=== PATIENT | female | born 1955 | race African-American/Black ===

== ENCOUNTER 2021-04-20 13:07 | Emergency (ER) | payer MEDICARE, MEDICAID, SELFPAY ==
[2021-04-20 13:18] VITALS: BP 133/76; PULSE 62; RESP 16; TEMP 36.1; O2SAT 99
--- NOTE | 2021-04-20 14:35 | ED.URI ---
HPI - URI/Sore Throat General Chief Complaint: Upper Respiratory Infection Stated Complaint: congestion Source: patient and RN notes reviewed Limitations: no limitations History of Present Illness HPI Narrative: The vaccinated patient, a lifelong non-smoker/nondrinker, presents with a shorter 1 to 2-day history of cough, slight hoarseness associated with definite new wheezing. No fever, sputum changes, earache, sore throat; no loss of taste/smell, CP, precordial chest pain, vomiting/diarrhea, S OB. Symptoms are mild, and worse supine/at night Related Data Home Medications Medication Instructions Recorded Confirmed aspirin 81 mg PO DAILY 04/20/21 04/20/21 diclofenac sodium TOPICAL 04/20/21 ferrous sulfate 325 mg PO DAILY 04/20/21 04/20/21 losartan 04/20/21 naproxen 04/20/21 pravastatin 04/20/21 sitagliptin [Januvia] mg 04/20/21 Allergies Allergy/AdvReac Type Severity Reaction Status Date / Time CODIENE AdvReac Intermediate DIARRHEA Uncoded 08/27/15 07:38 Review of Systems Review of Systems: General/Constitutional: No weight loss,fever Eyes: N0: Redness,discharge Ears/Nose/Throat: No: Epistaxis,ear discharge Respiratory: Denies: Hemoptysis Gastrointestinal: No Vomiting, Bleeding-rectal Skin: No Lumps, eruption Neurologic: No Focal Weakness,Sz Hematologic: Denies: Petechiae/Purpura Psychiatric: No: Suicida ideationl All Other Systems: Reviewed and Negative PMFSH Comments At time of signature, agree with nursing past medical, surgical, social and family history. There is no relevant family history pertinent to the presenting complaint Exam Narrative: General Appearance: Well appearing, Well nourished/obese, Conjunctiva clear Ears: Auditory canal normal, TM normal Nose: Rhinorrhea, Mucousal erythema Mouth/Throat: MM moist, Uvula midline, Pharyngeal erythema Neck: Supple, No adenopathy Respiratory: No respiratory distress, Breath sounds equal, decreased at bases, scattered wheezing Cardiovascular: RRR, No JVD Musculoskeletal: Non tender, Normal strength Skin: Warm, Dry Neurological: A&O x3, CN II-XII intact Psychiatric: Normal mood, Normal affect Course Vital Signs Vital signs: Vital Signs Temperature 97.0 F L 04/20/21 13:18 Pulse Rate 62 04/20/21 13:18 Respiratory Rate 16 04/20/21 13:18 Blood Pressure 133/76 04/20/21 13:18 Pulse Oximetry 99 04/20/21 13:18 Temperature 97.0 F L 04/20/21 13:18 Pulse Rate 62 04/20/21 13:18 Respiratory Rate 16 04/20/21 13:18 Blood Pressure 133/76 04/20/21 13:18 Pulse Oximetry 99 04/20/21 13:18 Discharge Plan Discharge Clinical Impression: Wheezing-associated respiratory infection (WARI), Cough Patient Disposition: Home, Self-Care Condition: Stable Instructions: Reactive Airways Disease (ED) Prescriptions: New azithromycin 250 mg tablet See Rx Instructions .ROUTE .COMPLEX Qty: 6 RF: 0 prednisone 20 mg tablet 60 mg PO DAILY Qty: 15 RF: 0 albuterol sulfate [Ventolin HFA] 90 mcg/actuation HFA aerosol inhaler 2 puff INHALATION QID PRN (Reason: shortness of breath or wheezing) Qty: 8.5 RF: 1 benzonatate [Tessalon Perles] 100 mg capsule 100 mg PO TID Qty: 20 RF: 1 No Action losartan 50 mg tablet RF: 0 pravastatin 40 mg tablet RF: 0 ferrous sulfate 325 mg (65 mg iron) Tablet 325 mg PO DAILY RF: 0 aspirin 81 mg Tablet 81 mg PO DAILY RF: 0 naproxen 500 mg tablet RF: 0 Januvia 100 mg tablet RF: 0 diclofenac sodium 1 % gel TOPICAL RF: 0 Other Ambulatory Orders: SARS-CoV-2 RNA, Qual RT-PCR (Routine) Location: Determined by Patient Ordered By: Los Beal Follow-up/Referrals: Brandon,KENIA Stewart [Primary Care Provider] -
[2021-04-20] MEDS: predniSONE 20 MG TABLET 60 MG PO (14:48)
== END 2021-04-20 14:55 | disposition home or self-care (01) ==
PROVIDERS: Emergency Provider Emergency Medicine; PCP Physician Assistant
DX: J98.8 Other specified respiratory disorders (principal); R06.2 Wheezing; Z79.82 Long term (current) use of aspirin; Z79.1 Long term (current) use of non-steroidal anti-inflammatories (NSAID); Z20.822 Contact with and (suspected) exposure to COVID-19
CPT/HCPCS: 87426; 99213; C9803; G0463; J7512

== ENCOUNTER 2021-09-21 11:41 | Emergency (ER) | payer MEDICARE, MEDICAID, SELFPAY ==
--- NOTE | ~2021-09-21 | XR_ITS ---
EXAMINATION: XR foot RT min 3V EXAM DATE: 09/21/2021 12:29 INDICATION: Diffuse rt foot pain x 3 days etiology unknown. TECHNIQUE: Right foot dorsoplantar, lateral and oblique projections obtained and reviewed. There is no prior study for comparison. FINDINGS: Right metatarsal bones unremarkable. There is mild right 1st metatarsophalangeal and inter phalangeal primary osteoarthritis. There are no acute fractures or dislocations identified. There is no subcutaneous gas. The soft tissue is unremarkable. There are no radiopaque foreign bodies. Th ere are no bony erosions identified. There is an old 5th proximal phalangeal fracture. IMPRESSION: Mild 1st MTP, IP osteoarthritis. Reviewed, dictated and finalized at location A. MODEL
[2021-09-21 11:59] VITALS: BP 117/66; PULSE 65; RESP 16; TEMP 36.2; O2SAT 98
--- NOTE | 2021-09-21 12:16 | ED.LOWEXIN ---
HPI - Extremity Injury (Lower) General Chief Complaint: Extremity Injury, Lower Stated Complaint: RIGHT ANKLE PAIN Time Seen by Provider: 09/21/21 11:50 Source: patient, RN notes reviewed and old records reviewed Mode of arrival: ambulatory Limitations: no limitations History of Present Illness HPI Narrative: [facility] foot pain. Started 4 days ago after walking on ice. Denies falling or tripping or twisting foot. Unable to put full weight on foot. Has been walking on heel and outer right foot. Reports sharp pain. Pain continues after patient has been walking. Has been taking Tylenol extra strength 2 tabs daily. Has been applying ice and elevating right foot when sitting. Denies increased swelling to right foot or ankle. Denies fever muscle aches chills. Reports typically swims and walks for regular activity. Some parts of this dictation were generated by voice recognition software and may contain typographical and/or grammatical inaccuracies. Related Data Home Medications Medication Instructions Recorded Confirmed aspirin 81 mg PO DAILY 04/20/21 09/21/21 ferrous sulfate 325 mg PO DAILY 04/20/21 09/21/21 losartan 50 mg PO DAILY 04/20/21 naproxen 500 mg PO DAILY 04/20/21 pravastatin 40 mg PO DAILY 04/20/21 sitagliptin [Januvia] 100 mg PO DAILY 04/20/21 Allergies Allergy/AdvReac Type Severity Reaction Status Date / Time CODIENE AdvReac Intermediate DIARRHEA Uncoded 09/21/21 12:19 Review of Systems Review of Systems: CONSTITUTIONAL: Denies fever, chills, or sweats. EYES: Denies visual changes, redness, or discharge. ENT: Denies rhinorrhea, congestion, sore throat, or otalgia. CARDIOVASCULAR: Denies chest pain, palpitations, or edema. RESPIRATORY: Denies cough or dyspnea. GASTROINTESTINAL: Denies abdominal pain, nausea, vomiting, or diarrhea. GENITOURINARY: Denies dysuria or hematuria. SKIN: Denies rash or itching. MUSCULOSKELETAL: Denies back pain, joint pain, or myalgia. Reports right bottom of foot and outer foot pain. Pain in right heel hurts with walking. Unable to bear full weight on right foot. NEUROLOGIC: Denies headache, numbness, or weakness. All other systems reviewed are negative, except as documented in HPI. All systems reviewed & are unremarkable except as noted in HPI and below Constitutional: Comments: Denies fatigue muscle aches or chills. PMFSH Comments At the time of my signature, I reviewed and agree with the nursing past medical, surgical, social, and family history. There is no relevant family history pertinent to the patient complaint. Exam Narrative: GENERAL: This is a well-nourished, well-developed above average BMI female in no apparent distress. HEAD: normocephalic, atraumatic. EYES: Sclera clear/white. Vision is grossly intact. EARS: External ears normal, auditory canals clear and without drainage, Hearing grossly intact. NOSE: External nose normal with no obvious nasal discharge, nares without redness, no rhinorrhea. THROAT: Mucous membranes moist, NECK: Neck supple, full range of motion. CARDIOVASCULAR: Regular rate and rhythm without murmurs, gallops, or rubs. RESPIRATORY: Clear to auscultation anterior and posterior. Breath sounds equal bilaterally. No wheezes, rales, or rhonchi. GASTROINTESTINAL: Abdomen soft, non-tender, nondistended. Bowel sounds are active. SKIN: warm, Dry, intact with no suspicious lesions or rash, good texture and turgor. NEURO: awake, alert, and oriented to person, place and time. There were no obvious focal neurologic abnormalities. Cranial nerves grossly intact. EXTREMITIES: No calf tenderness. Right foot and ankle nonpitting edema. Right midline pedal tenderness with palpation. Right heel tender with palpation. Right distal power press tender with palpation. Course Course Level of Care: Express Care Visit Vital Signs Vital signs: Vital Signs Temperature 36.2 C L 09/21/21 11:59 Pulse Rate 65 09/21/21 11:
== END 2021-09-21 12:55 | disposition home or self-care (01) ==
PROVIDERS: Emergency Provider Nurse Practitioner Family
DX: M19.071 Primary osteoarthritis, right ankle and foot (principal); E78.00 Pure hypercholesterolemia, unspecified; I10 Essential (primary) hypertension
CPT/HCPCS: 73630; 99213; G0463

== ENCOUNTER 2022-07-08 00:38 | Day surgery (SDC) | payer MEDICARE, MEDICAID, SELFPAY ==
[2022-07-05 11:17] VITALS: BMI 37.7
[2022-07-08 10:10] VITALS: BP 122/76; PULSE 63; RESP 18; TEMP 36.1; O2SAT 98; BMI 34.6
[2022-07-08] MEDS: LACTATED RINGERS 1,000 ML 150 ML IV CONT (10:25)
--- NOTE | 2022-07-08 10:25 | P.PNAN_ITS ---
Anes - Initial Pre Proc Eval Procedure: Operation Date: 07/08/22 11:00 Proposed Procedures p Screening Colonoscopy - Zen Martinez MD Date/Time: 07/08/22 10:25 Surgeon: Zen Martinez MD Pre Op Diagnosis: Hx of colon polyps Patient Data Age: 67 Gender: F Height: 1.73 m Weight: 103.2 kg Last Vital Signs Temp 97 F L 07/08/22 10:10 Pulse 63 07/08/22 10:10 Resp 18 07/08/22 10:10 BP 122/76 07/08/22 10:10 Pulse Ox 98 07/08/22 10:10 O2 Del Method Room Air 07/08/22 10:10 Allergies Allergy/AdvReac Type Severity Reaction Status Date / Time CODIENE AdvReac Intermediate Hallucinati Uncoded 07/05/22 11:17 ng Home Medications Medication Instructions Recorded Confirmed Type aspirin 81 mg tablet 81 mg PO DAILY 04/20/21 07/05/22 History ferrous sulfate 325 mg (65 mg 325 mg PO DAILY 04/20/21 07/05/22 History iron) tablet losartan 50 mg tablet 50 mg PO DAILY 04/20/21 07/05/22 History pravastatin 40 mg tablet 40 mg PO DAILY 04/20/21 07/05/22 History sitagliptin phosphate 100 mg 100 mg PO DAILY 04/20/21 07/05/22 History tablet (Januvia) sodium,potassium,mag sulfates 17.5 See Rx Instructions PO .COMPLEX 05/24/22 07/05/22 Rx gram-3.13 gram-1.6 gram oral soln #354 mL (Suprep Bowel Prep Kit) Patient hx anesthesia problems: none Family hx anesthesia problems: none Results Review: All pre-operative results and documents have been reviewed as part of the pre- operative evaluation. [facility] Social History Social History Smoking status: Never smoker Alcohol intake: current Substance use: never Substance use type: does not use Living arrangements: with family Spiritual care concerns: No Anes - Eval Final PreProcedure Day of Procedure 07/08/22 10:25 Patient weight: obese Heart: regular rate and rhythm Lungs: clear to auscultation Airway: Mallampati scale class II Neurological: alert and oriented Last oral intake: >/= 8 hours ASA classification: III Emergent: no Anesthetic plan: proceed Anesthesia type and monitoring: general GIVS and standard monitoring Results Review: All pre-operative results and documents have been reviewed as part of the pre- operative evaluation. Informed Consent: The patient's anesthetic plan and its attendant risks and benefits were discussed with the patient/family/POA. Questions were solicited and answers provided to the satisfaction of the patient/family/POA.
[2022-07-08 10:38] LABS: Glucose Point of Care 98 mg/dl (65-105)
--- NOTE | 2022-07-08 10:43 | P.HP_ITS ---
History of Present Illness History of Present Illness Consent: Risks, benefits, and alternatives have been discussed and questions answered. Patient agrees to proceed with procedure. Chief complaint: Hx of colon polyps Narrative: Karine Taylor is a 67 year old female Presents for screening colonoscopy. Patient is reported to have a adenomatous colon polyp removed and colon by Dr. Moura in 2016. Patient reports that her current weight appetite and bowel movements are normal. Patient denies abdominal pain. She has had no bleeding. Family history noncontributory. Review of Systems Review of Systems: Review of systems noncontributory. COUNTS INCLUDE 234 BEDS AT THE [facility] Social History Social History Smoking status: Never smoker Alcohol intake: current Substance use: never Substance use type: does not use Living arrangements: with family Spiritual care concerns: No Meds Home Medications and Allergies Home Medications Medication Instructions Recorded Confirmed Type aspirin 81 mg tablet 81 mg PO DAILY 04/20/21 07/05/22 History ferrous sulfate 325 mg (65 mg 325 mg PO DAILY 04/20/21 07/05/22 History iron) tablet losartan 50 mg tablet 50 mg PO DAILY 04/20/21 07/05/22 History pravastatin 40 mg tablet 40 mg PO DAILY 04/20/21 07/05/22 History sitagliptin phosphate 100 mg 100 mg PO DAILY 04/20/21 07/05/22 History tablet (Januvia) sodium,potassium,mag sulfates 17.5 See Rx Instructions PO .COMPLEX 05/24/22 07/05/22 Rx gram-3.13 gram-1.6 gram oral soln #354 mL (Suprep Bowel Prep Kit) Allergies Allergy/AdvReac Type Severity Reaction Status Date / Time CODIENE AdvReac Intermediate Hallucinati Uncoded 07/05/22 11:17 ng Vital Signs Vital Signs - 24 hr 07/08/22 10:10 Temperature 97 F L Pulse Rate 63 Respiratory Rate 18 Blood Pressure 122/76 Pulse Oximetry 98 Oxygen Delivery Room Air Exam Narrative: Physical exam reveals patient to be alert. Vital signs stable. HEENT exam is unremarkable. Patient is anicteric. Lungs are clear to auscultation and percussion. Heart is without murmur or extra sounds. Abdominal exam bowel sounds are present soft nontender with no organomegaly. Digital external rectal exam is normal. Assessment and Plan Assessment and plan (1) History of colon polyps: Code(s): Z86.010 - Personal history of colonic polyps Status: Acute Assessment and Plan: Patient has a history of adenomatous colon polyp removed from the colon 6 years ago. Plan for surveillance colonoscopy at this time. Follow-up every 5 years is advised.
[2022-07-08 11:15] VITALS: BP 124/58; PULSE 58; RESP 22; O2SAT 100
[2022-07-08 11:25] VITALS: BP 129/63; PULSE 57; RESP 20; O2SAT 98
[2022-07-08 11:35] VITALS: BP 135/69; PULSE 58; RESP 20; O2SAT 100
[2022-07-08 12:09] LABS: Hematocrit 42.1 % (37.0-47.0); Hemoglobin 12.9 g/dL (12.0-15.0); Mean Corpuscular HGB Conc 30.6 g/dl (32-36); Mean Corpuscular Hemoglobin 28.4 pg (26-34); Mean Corpuscular Volume 92.5 fl (80-100); Mean Platelet Volume 10.1 fl (7.4-10.4); Platelet Count Result 189 k/mm3 (150-375); Red Blood Count 4.55 M/mm3 (4.2-5.4); Red Cell Distribution Width 13.2 % (11.5-14.5)
--- NOTE | 2022-07-08 12:10 | SUR.PHASEII ---
1135: MULTIPLE ATTEMPTS TO DRAW BLOOD WORK ORDERED. LAB CALLED TO DRAW BLOOD WORK. LAB OBTAINED CBC ORDERED. PT TOLERATED WELL.
== END 2022-07-08 12:20 | disposition home or self-care (01) ==
PROVIDERS: Visit Provider Internal Medicine Gastroenterology
PROC: 0DJD8ZZ Inspection of Lower Intestinal Tract, Via Natural or Artificial Opening Endoscopic (ICD-10-PCS; CPT 45378; principal; 2022-07-08 11:00)
DX: Z12.11 Encounter for screening for malignant neoplasm of colon (principal); Z86.010 Personal history of colon polyps; K57.30 Diverticulosis of large intestine without perforation or abscess without bleeding
CPT/HCPCS: G0105; 36415; 82948; 85027; J2704; J7120

== ENCOUNTER 2022-10-05 15:04 | Outpatient (CLI) | payer MEDICARE, MEDICAID, SELFPAY ==
--- NOTE | ~2022-10-05 | XR_ITS ---
EXAMINATION: XR lumbar spine 6V w bending DATE: 10/05/2022 15:35 INDICATION: Low back pain. TECHNIQUE: 6 views of the lumbar spine including flexion and extension views were obtained. COMPARISON: Radiographs 03/25/2013 FINDINGS: There is levoscoliosis of lumbar spine. There is 3 mm anterolisthesis of L3 on L4 and L4 on L5. The spine is hypomobile with flexion and extension. Vertebral body heights are normal. There is mildly decreased disc height at L3-L4 and moderately decreased disc height at L4-L5 and severely decr eased disc height at L5-S1. There is multilevel severe facet joint osteoarthritis bilaterally. There are surgical clips in the right abdomen. There is advanced left hip osteoarthritis. IMPRESSION: 1. Severe lumbar spondylosis. 2. Lumbar levoscoliosis. Reviewed, dictated and finalized at location A. O CONVEYOR OPERATOR
== END 2022-10-05 15:05 | disposition home or self-care (01) ==
PROVIDERS: PCP Physician Assistant; Visit Provider Physician Assistant
DX: M47.896 Other spondylosis, lumbar region (principal)
CPT/HCPCS: 72114

== ENCOUNTER 2022-10-21 13:42 | Outpatient (CLI) | payer MEDICARE, MEDICAID, SELFPAY ==
--- NOTE | ~2022-10-21 | MR_ITS ---
MRI of the lumbar spine Clinical History: Degenerative disc disease Technique: Axial T2-weighted images, and sagittal T1-weighted, T2-weighted, and T2 fat-sat images wer e acquired. Findings: There is no fracture in the lumbar spine. Minimal grade 1 anterolisthesis of L3 over L4 not ed. No suspicious bone marrow signal abnormality seen. At L1-L2, there is minimal disc bulge. There is moderate to advanced facet arthropathy. No spinal can al stenosis. There is moderate to advanced bilateral neural foraminal narrowing. At L2-L3, there is disc bulge and bilateral facet arthropathy. No spinal canal stenosis. There is mod erate to severe right neural foraminal narrowing. There is minimal left neural foraminal narrowing. At L3-L4, there is diffuse disc bulge with advanced facet arthropathy. There is moderate thecal sac c ompression. There is severe right neural foraminal narrowing. There is mild left neural foraminal ana luisa rowing. At L4-L5, disc bulge and facet arthropathy result in severe thecal sac compression/spinal canal steno sis. There is severe bilateral neural foraminal narrowing, right worse than left. At L5-S1, there is diffuse disc bulge with facet arthropathy. No spinal canal stenosis. There is hi re left neural foraminal narrowing and minimal right neural foraminal narrowing. Paravertebral soft tissues are unremarkable. Impression: Moderate to severe degenerative spondylosis of the lumbar spine, as detailed above. There is multifac torial severe thecal sac compression L4-L5, and moderate thecal sac compression at L3-L4. There is mu ltilevel moderate to advanced bilateral neural foraminal narrowing, as detailed above. Minimal grade 1 anterolisthesis of L3 over L4. Reviewed, dictated and finalized at location . Impression: Moderate to severe degenerative spondylosis of the lumbar spine, as detailed ab ove. There is multifactorial severe thecal sac compression L4-L5, and moderate thecal sac compression at L3-L4. There is multilevel moderate to advanced bilat eral neural foraminal narrowing, as detailed above. Minimal grade 1 anterolisthesis of L3 over L4.
== END 2022-10-21 13:43 | disposition home or self-care (01) ==
PROVIDERS: PCP Physician Assistant; Visit Provider Physician Assistant
DX: M51.37 Other intervertebral disc degeneration, lumbosacral region (principal); M47.9 Spondylosis, unspecified; M43.06 Spondylolysis, lumbar region; M51.06 Intervertebral disc disorders with myelopathy, lumbar region
CPT/HCPCS: 72148

== ENCOUNTER 2023-04-21 09:42 | Outpatient (CLI) | payer MEDICARE, MEDICAID, SELFPAY ==
--- NOTE | 2023-04-21 10:39 | ECG_ITS ---
Measurements Intervals [place] Rate: 58 P: 53 NC: 166 QRS: 39 QRSD: 95 T: 52 QT: 394 QTc: 389 Interpretive Statements SINUS BRADYCARDIA BASELINE ARTIFACT- I, II, III, AVR, AVL, V6 BORDERLINE ECG NO PREVIOUS ECG AVAILABLE FOR COMPARISON Electronically Signed On 04-21-2023 11:35:34 CDT by Dorian Nguyen D.O.
[2023-04-21 11:30] LABS: Basophils Absolute Auto 0.1 K/mm3 (0.0-0.1); Basophils Percent Auto 1.2 % (0.2-1.2); Eosinophils Absolute Auto 0.2 K/mm3 (0-0.3); Eosinophils Percent Auto 3.3 % (0-4.4); Hematocrit 38.5 % (37.0-47.0); Hemoglobin 11.6 g/dL (12.0-15.0); Immature Granulocyte Absolute 0.01 K/mm3 (0.00-0.031); Immature Granulocyte Percent A 0.2 % (0-0.5); Lymphocytes Absolute Auto 1.43 K/mm3 (0.9-3.2); Lymphocytes Percent Auto 28.1 % (18.3-44.2); Mean Corpuscular HGB Conc 30.1 g/dl (32-36); Mean Corpuscular Hemoglobin 27.6 pg (26-34); Mean Corpuscular Volume 91.7 fl (80-100); Mean Platelet Volume 10.7 fl (7.4-10.4); Monocytes Absolute Auto 0.4 K/mm3 (0.1-0.6); Monocytes Percent Auto 8.1 % (2.6-8.5); Neutrophils Percent Auto 59.1 % (45.5-73.1); Platelet Count Result 218 k/mm3 (150-375); Red Cell Distribution Width 13.3 % (11.5-14.5); White Blood Count 5.1 K/mm3 (4.5-10.0)
[2023-04-21 11:34] LABS: Urine Cotinine NEGATIVE
[2023-04-21 11:35] LABS: Albumin Level 3.9 g/dL (3.5-5.1); Anion Gap 4 mmol/L (8-16); Blood Urea Nitrogen 19 mg/dL (7-17); Calcium 8.9 mg/dL (8.4-10.2); Carbon Dioxide 30 mmol/L (22-30); Chloride 104 mmol/L (98-107); Estimated Glomerular Filt Rate > 60; Glucose 93 mg/dL (65-110); Potassium 3.7 mmol/L (3.4-5.0); Sodium 138 mmol/L (137-145)
[2023-04-21 11:37] LABS: Hemoglobin A1C 5.1 % (<5.7)
== END 2023-04-21 09:43 | disposition home or self-care (01) ==
LOC: ANHSURGERY 09:48
PROVIDERS: PCP Physician Assistant; Visit Provider Orthopaedic Surgery
DX: M16.12 Unilateral primary osteoarthritis, left hip (principal); Z01.818 Encounter for other preprocedural examination; R94.31 Abnormal electrocardiogram [ECG] [EKG]
CPT/HCPCS: 80048; 80307; 82040; 83036; 85025; 87081; 93005

== ENCOUNTER 2023-05-10 00:30 | Day surgery (SDC) | payer MEDICARE, MEDICAID, SELFPAY ==
[2023-04-21 09:55] VITALS: BMI 33.3
--- NOTE | 2023-04-21 10:15 | PC.NURSE ---
Report to the Outpatient Waiting Room, entrance under the green pavilion located off [facility], at time __0600 on date __05/10/23 . Planned Procedure Time: _0730 . Time changes happen often and if your time is changed the preop area will call you the afternoon before. - You and your visitor will be asked to self-screen and do not enter if you have any COVID symptoms. - A mask is optional within the hospital at this time. Patients may have clear liquids (water, carbonated beverages, clear teas, apple juice) until 3 hours prior to surgery with a maximum of 20 ounces. - No food from midnight until time of surgery - Infants may have breast milk until 4 hours before surgery, formula 6 hours prior to surgery. - Children will be allowed to drink immediately following surgery. If applicable, please bring a bottle or sippy cup to assist with drinking. Juice, water, soda, and popsicles are readily available. For infants on formula, please bring formula the day of surgery. Pacifiers are allowed. Take the following medications with a SIP of water the morning of surgery: NONE DO NOT STOP ANY OF YOUR OTHER PRESCRIPTION MEDICATIONS PRIOR TO SURGERY ?EXCEPT THE FOLLOWING Medications to discontinue per physician __PT STATES CONTINUE ASPIRIN PER DR CARNES,HOLD DICLOFENAC 7 DAYS PRE OP.LAST DOSE 05/02/23___ ALL VITAMINS AND SUPPLEMENTS 3 DAYS PRE OP.LAST DOSE05/06/23 MAY TAKE TYLENOL IF NEEDED FOR PAIN Please no make-up, nail [place], hairspray, perfume, deodorant, or body powder the day of surgery. No jewelry (including any body piercings) or valuables the day of surgery, leave them at home. Please take a shower or bath the night before, or the morning of, surgery with an antibacterial soap. Wear comfortable, loose fitting clothing. Children are encouraged to wear pajamas. - Jewelry must be removed prior to entering the operating room. Rings and piercings that are not removed may be cut off. - The hospital will not accept responsibility for valuables. - Please leave all valuables, including medications, at home the day of surgery. If you are going home after surgery, a licensed industrial truck driver must drive you home. - NO public transportation without another adult if you receive anesthesia. - We recommend that an adult stay with you for 24 hours following discharge. - We also recommend that you do not drive, make important decision, drink alcoholic beverages, or take any drugs that were not prescribed by your health care provider for at least 24 hours after your discharge time. Follow any additional instructions given to you from your surgeon. If you or anyone in your household have experienced Covid symptoms in the past week, please notify your surgeon or the nurse liaison at the phone number below for possible testing. VERBAL AND WRITTEN instructions given to PATIENT and asked if any additional questions and then verbalized understanding. Patient advised to call surgeon office or pre surgery nurse liaison [phone] if any additional questions.
[2023-04-21 10:41] VITALS: BP 137/77; PULSE 62; RESP 18; TEMP 36.6; O2SAT 98
--- NOTE | 2023-05-08 12:47 | PM.IMHP ---
H&P: HPI History of Present Illness Date/Time: 05/08/23 12:47 Chief Complaint: Left hip DJD Narrative: 67-year-old female patient of Dr. Macdonald who presents today for an anterior left total hip arthroplasty. Patient has advanced type 2 osteoarthritis with pronounced hypertrophic changes of the hip. She has limited range of motion of the hip but also rather significant pain with ambulation as well as normal daily activities. She has been taking diclofenac 75 mg b.i.d. without improvement of her symptoms. She is having to rely on a cane at this point due to the pain in the hip. At this point patient feels she is ready proceed with total arthroplasty rather than continuing nonsurgical treatment. Review of Systems Review of Systems: All systems reviewed & are unremarkable except as noted in HPI and below PMFSH Social History Social History Smoking status: Never smoker Additional smoking assessment comments: DENIES ANY FORM OF TOBACCO USE Alcohol intake: current Alcohol use details: ONE DRINK PER MONTH Substance use: never Substance use type: does not use Lack of Transportation: No Lack of Food: Sometimes True Current Housing: I Have Housing Concerned About Future Housing: No Difficulty Paying Gas/Electric Bills: No Difficulty Paying for Meds: No Currently Unemployed: No Education: High School Diploma/GED Difficulty w/ Childcare or Family Care: No Living arrangements: alone Spiritual care concerns: No Meds Home Medications and Allergies Home Medications Medication Instructions Recorded Confirmed Type aspirin 81 mg tablet 81 mg PO DAILY 04/20/21 04/21/23 History ferrous sulfate 325 mg (65 mg 325 mg PO DAILY 04/20/21 04/21/23 History iron) tablet cholecalciferol (vitamin D3) 25 25 mcg PO DAILY 10/05/22 04/21/23 History mcg (1,000 unit) capsule cyclobenzaprine 10 mg tablet 10 mg PO QHS PRN muscle spasm #30 10/05/22 04/21/23 Rx tabs diclofenac sodium 75 mg 75 mg PO BID 10/05/22 04/21/23 History tablet,delayed release multivitamin 1 tablet PO DAILY 10/05/22 04/21/23 History losartan 50 mg tablet 50 mg PO DAILY #90 tabs 12/27/22 04/21/23 Rx pravastatin 40 mg tablet 40 mg PO DAILY #90 tabs 03/20/23 04/21/23 Rx sitagliptin phosphate 100 mg 100 mg PO DAILY #90 tabs 04/07/23 04/21/23 Rx tablet (Januvia) Allergies Allergy/AdvReac Type Severity Reaction Status Date / Time LYRIC AdvReac Intermediate Hallucinati Uncoded 04/21/23 09:56 ng Exam Narrative: 67-year-old female alert pleasant. She is 5 ft 6 219 lb, her BMI is 35.3. She has flexion left hip 0.8? internal rotation is 0 external rotation is 0, range of motion causes her rather severe anterior hip and groin pain. Skin around the hip and groin crease are normal. She has normal sensation left lower extremity. No edema in lower extremity. 2+ dorsalis pedis pulse in the foot. Resp: Auscultation: clear to auscultation bilaterally Cardio: Rate: regular rate Rhythm: regular rhythm Assessment and Plan Assessment and plan (1) Hip arthritis: Code(s): M16.10 - Unilateral primary osteoarthritis, unspecified hip Status: Acute Plan 67-year-old female who has severe osteoarthritis left hip with continued symptoms. Again she feels she is ready proceed with total hip arthroplasty at this point. Surgical procedure as well as the risks and complications were discussed in detail questions were answered we will proceed. Patient will stop her diclofenac and any other aspirin ibuprofen products 1 week prior surgery. She will see her primary care doctor for pre-surgical clearance. Patient's nasal swab was negative. Chem panel is all within normal limits creatinine 0.50. Hemoglobin is 11.6 and platelets 218. We will plan use Eliquis for DVT prophylaxis.
--- NOTE | 2023-05-09 14:15 | P.PNAN_ITS ---
Anes - Initial Pre Proc Eval Procedure: Operation Date: 05/10/23 07:30 Proposed Procedures p Left Total Hip Arthroplasty, Anterior Approach - Anmol Cook MD Date/Time: 05/09/23 14:15 Surgeon: Anmol Cook MD Pre Op Diagnosis: severe O A Lt Hip Patient Data Age: 67 Gender: F Height: 1.73 m Weight: 99.5 kg Last Vital Signs Temp 97.8 F 04/21/23 10:41 Pulse 62 04/21/23 10:41 Resp 18 04/21/23 10:41 BP 137/77 04/21/23 10:41 Pulse Ox 98 04/21/23 10:41 O2 Del Method Room Air 04/21/23 10:41 Allergies Allergy/AdvReac Type Severity Reaction Status Date / Time CODIENE AdvReac Intermediate Hallucinati Uncoded 05/10/23 06:13 ng Home Medications Medication Instructions Recorded Confirmed Type aspirin 81 mg tablet 81 mg PO DAILY 04/20/21 05/10/23 History ferrous sulfate 325 mg (65 mg 325 mg PO DAILY 04/20/21 05/10/23 History iron) tablet cholecalciferol (vitamin D3) 25 25 mcg PO DAILY 10/05/22 05/10/23 History mcg (1,000 unit) capsule cyclobenzaprine 10 mg tablet 10 mg PO QHS PRN muscle spasm #30 10/05/22 04/21/23 Rx tabs diclofenac sodium 75 mg 75 mg PO BID 10/05/22 05/10/23 History tablet,delayed release multivitamin 1 tablet PO DAILY 10/05/22 05/10/23 History losartan 50 mg tablet 50 mg PO DAILY #90 tabs 12/27/22 05/10/23 Rx pravastatin 40 mg tablet 40 mg PO DAILY #90 tabs 03/20/23 05/10/23 Rx sitagliptin phosphate 100 mg 100 mg PO DAILY #90 tabs 04/07/23 05/10/23 Rx tablet (Januvia) Patient hx anesthesia problems: none Family hx anesthesia problems: none Results Review: All pre-operative results and documents have been reviewed as part of the pre- operative evaluation. PMFSH Social History Social History Smoking status: Never smoker Additional smoking assessment comments: DENIES ANY FORM OF TOBACCO USE Alcohol intake: current Alcohol use details: ONE DRINK PER MONTH Substance use: never Substance use type: does not use Lack of Transportation: No Lack of Food: Sometimes True Current Housing: I Have Housing Concerned About Future Housing: No Difficulty Paying Gas/Electric Bills: No Difficulty Paying for Meds: No Currently Unemployed: No Education: High School Diploma/GED Difficulty w/ Childcare or Family Care: No Living arrangements: alone Spiritual care concerns: No Anes - Eval Final PreProcedure Day of Procedure 05/09/23 14:15 Patient weight: obese Heart: regular rate and rhythm Lungs: clear to auscultation Airway: Mallampati scale class II Neurological: alert and oriented Last oral intake: >/= 8 hours ASA classification: III Emergent: no Anesthetic plan: proceed Anesthesia type and monitoring: general ETT and standard monitoring Results Review: All pre-operative results and documents have been reviewed as part of the pre- operative evaluation. Informed Consent: The patient's anesthetic plan and its attendant risks and benefits were discussed with the patient/family/POA. Questions were solicited and answers provided to the satisfaction of the patient/family/POA.
[2023-05-10] VITALS (17 sets, daily range): BP systolic 102–145; BP diastolic 54–92; PULSE 63–101; RESP 16–22; TEMP 35.9–37.2; O2SAT 97–100
--- NOTE | ~2023-05-10 | XR_ITS ---
EXAMINATION: XR hip LT 1V w AP pelvis, XR surgery orthopedic DATE: 05/10/2023 11:47 (accession [id number]), 05/10/2023 11:27 (accession [id number]) INDICATION: Left total hip arthroplasty TECHNIQUE: 2 views left hip FINDINGS: There is a left total hip arthroplasty in expected position. Subcutaneous gas with soft ti ssue swelling are consistent with recent surgery. IMPRESSION: 1. Recent left total hip arthroplasty. Reviewed, dictated and finalized at location B. IMPRESSION: 1. Recent left total hip arthroplasty.
[2023-05-10] MEDS: LACTATED RINGERS 1,000 ML 30 ML IV CONT ×2 (06:34→11:52)
[2023-05-10] MEDS: ACETAMINOPHEN 500 MG TABLET 1000 MG PO ×3 (06:35→20:42)
[2023-05-10 06:42] LABS: Glucose Point of Care 110 mg/dl (65-105)
[2023-05-10] MEDS: TRANEXAMIC ACID 1,000MG/ISO100 1,000 MG/100 ML BAG 200 MG IVPB (07:07)
--- NOTE | 2023-05-10 07:11 | WPDHPUPDATE1 ---
History and Physical Update Update Date/Time: 05/10/23 07:11 History and Physical has been reviewed, including an updated exam of the patient. There are NO changes in the patient's condition. Risks, benefits, and alternatives have been discussed and questions answered. Patient agrees to proceed with procedure.
[2023-05-10] MEDS: ceFAZolin 2 GM/D5W 50 ML 2 GM/50 ML BAG IVPB (07:38)
[2023-05-10] MEDS: ceFAZolin SODIUM 1 GM VIAL 5 GM (08:37)
[2023-05-10] MEDS: ceFAZolin SODIUM 1 GM VIAL 2 GM IV PUSH (11:15)
[2023-05-10] MEDS: TRANEXAMIC ACID 1,000 MG/10 ML AMPUL 1000 MG IV PUSH (11:17)
--- NOTE | 2023-05-10 11:21 | SUR.OPER ---
Cell Saver: returned 495 mls of patient's own blood.
[2023-05-10 11:59] LABS: Glucose Point of Care 235 mg/dl (65-105)
--- NOTE | 2023-05-10 12:00 | PM.OP ---
Procedure Note - Brief Procedure Note - Brief Date of procedure: 05/10/23 severe O A Lt Hip Procedure performed: Left anterior total hip arthroplasty Surgeon: KENIA Moe Findings: 67-year-old female who underwent left anterior total hip arthroplasty on 05/10. I was involved in the procedure including positioning the patient on the OR table as well as 1st assisting to the time of surgery. Total time spent was 4 hours
--- NOTE | 2023-05-10 12:02 | W.PM.PROC2 ---
Procedure Note - Detailed Date of Procedure 05/10/23 Pre-op Diagnosis severe O A Lt Hip, Obesity BMI 35.2 Post-op Diagnosis Same Procedure Performed Left total hip arthroplasty direct anterior approach Surgeon Anmol Cook MD Pattern Setter Hayder Anesthesia General Description of Procedure Patient was brought to the operating room and general anesthesia was administered. She received 2 g Ancef weight based vancomycin 1 g of tranexamic acid preoperatively. SCDs were placed on the calves the feet padded boots applied placed and placed on the OSI [place] table and the left hip prepped draped usual fashion. There was extra difficulty with the procedure because of her obesity with BMI of 35.2 which added approximately 1 hour to the operation. A 10 cm longitudinal incision was made starting 3 cm lateral to the ASIS. Dissection was carried down the fascia over the tensor fascia laurence which was longitudinally incised elevated off the anterior 1/2 of the TFL muscle. Interval between TFL and rectus femoris developed. Crossing branches of ascending lateral femoral circumflex vessels were ligated with suture divided. Retractor was placed anterior to the capsule. The hip was abducted a little bit and the gluteus minimus elevated off the lateral capsule. Inverted T capsulotomy was performed femoral neck osteotomy made according to preop templating. Wafer of bone was removed and the femoral head was removed and measured only 43 mm in diameter. It was circumferentially worn. She had protrusio type deformity. The femoral canal was osteoporotic centrally and bled continuously during the procedure unfortunately at a rate greater than average contributing significantly to her total blood loss. Acetabulum was exposed residual labrum excised. The leg was externally rotated extended and the interval between piriformis and conjoined tendon incised which allowed conjoined tendon to recess in the piriformis to flipped which improved mobility. Piriformis was left attached. With the leg back in the horizontal position external rotation and traction acetabulum was exposed and we reamed up to a size 47 and then a light reaming with a 48. Press-Fit and the single screw placed in the ilium. Which also obtained excellent purchase and the 32 inner diameter neutral polyethylene liner was fully seated. Bone quality in the acetabulum was actually very good anterior posterior bey were white firm. We could see significant sclerosis of the subchondral bone diffusely in the acetabulum under fluoroscopic evaluation. Fluoro was used acetabular preparation cup was placed at 40? of abduction anatomic anteversion. Leg was externally rotated and extended and we broached up to a size 5 which started to me insertional resistance and had complete torsional stability. Trialing it was too tight a high offset neck +1 head and we can see the neck cut was a little bit high countersunk this 4 mm and were able to reduce the hip. Leg lengths under fluoro looked approximately equal with the hip was a bit tight. It took 2 hand dislocated. With muscle relaxation on board that was too tight I felt and we countersunk the broach another 2 mm which on trialing had appropriate soft tissue tension shot but excellent stability. Torsional stability of the broach inside the canal was reconfirmed. On x-ray, the lateral view of the femur showed excellent fill. The medial neck was calcar planed with the precision saw and Actis stem with collar size 6 high offset was chosen and seated fully without difficulty no cracks in the calcar excellent stability of the stem. Hip was trialed with the +1 head was stable. The real 32 mm +1 ceramic head was placed onto the clean and dried trunnion after thorough irrigation hip was reduced and stability reconfirmed. Capsular flaps were allowed to rest in site too. The fascia was repaired with running 1. Vicryl drain deep in the subcu skin with 2-0 subcutaneous Vicryl glue. EBL
[2023-05-10] MEDS: ONDANSETRON INJ 4 MG/2 ML VIAL IV PUSH (12:14)
--- NOTE | 2023-05-10 12:16 | SUR.PHASEI ---
1155 BLOOD SUGAR = 235; DR. MACDONALD NOTIFIED; NO INTERVENTIONS ORDERED; FLOOR WILL RECHECK.
[2023-05-10] MEDS: SCOPOLAMINE 1.5 MG PATCH TRANSDERM (12:43)
[2023-05-10] MEDS: diphenhydrAMINE HCl INJ 50 MG/ML VIAL 6.25 MG IV PUSH ×2 (12:45→12:58)
--- NOTE | 2023-05-10 12:48 | SUR.PHASEI ---
1200 CELL SAVER BLOOD FINISHED TRANSFUSING. NO ADVERSE REACTION.
[2023-05-10] MEDS: fentaNYL CITRATE INJ (*CRX) 100 MCG/2 ML VIAL 25 MCG IV PUSH ×2 (13:27→13:54)
[2023-05-10 14:09] LABS: Hematocrit 41.8 % (37.0-47.0)
--- NOTE | 2023-05-10 15:23 | ADMGEN ---
This patient, Karine Taylor, was admitted to 3 [facility] Surg Room 306-01. Report received from EVE Wilson. Patient/family oriented to hospital policies and general routines including ID bracelet, bed and alarms, visiting hours, pain management, procedures, bathroom and other care routines, personal items, smoking policy, room service/diet, and visiting hours. Information on how to activate the Rapid Response Team has been discussed. Patient/Family are encouraged to report perceived risks to care and to ask questions if they do not understand what they are told or what they should do.
--- NOTE | 2023-05-10 17:21 | PM.IMCN ---
Assessment and Plan Assessment and plan (1) S/P total left hip arthroplasty: Code(s): Z96.642 - Presence of left artificial hip joint Status: Acute (2) Diabetes mellitus: Code(s): E11.9 - Type 2 diabetes mellitus without complications Status: Acute (3) HTN (hypertension): Code(s): I10 - Essential (primary) hypertension Status: Acute Plan Problem List 1. Total left arthroplasty See Ortho notes for postsurgical care - drain in place with serosanguineous output. Home Diclofenac and Flexeril held. Started on Celebrex. Repeat CBC and BMP tomorrow, 05/11 OT and PT eval and treat 2. Diabetes mellitus, type 2 Continue home Januvia hypoglycemia protocol POC blood glucose ACHS correct regimen ordered - low dose TIDWM and HS last A1C 5.1 on 04/21/23 3. HTN Continue home losartan Monitor blood pressure Chronic Conditions -HLD: Continue home pravastatin -THOMAS: Continue home iron supplement and multivitamin Diet: Heart healthy GI Prophylaxis: Famotidine 20 mg p.o. DVT Prophylaxis: Eliquis and SCDs Lines: pIV Code Status: Full code HPI Data of Consult Consult date: 05/10/23 Requesting Physician: Anmol Cook MD Primary Care Provider: Liborio Velazquez PA-C Consult Narrative Reason for consult: Med Management Narrative: Karine Taylor is a 67 year old female here for an anterior total L hip arthroplasty with PMH of DM, HTN, THOMAS, and HLD. Patient presented here for anterior left total hip arthroplasty. She has advanced type 2 osteoarthritis with hypertrophic changes. Prior to surgery she had limited range of motion, significant pain with ambulation, interference with ADLs. She failed anti-inflammatories, no injections. Currently using a cane walker wheelchair at home depending upon her pain level. Elected for surgical treatment. Currently reports feeling a little sleepy, pain currently manageable and A/Ox4. Sees her PCP irregularly, reports that the or the process of potentially weaning her off her blood pressure medications. Last blood pressure 126/69. No other complaints. Review of Systems Review of Systems: All systems reviewed & are unremarkable except as noted in HPI and below PMFSH Past Medical History Medical History (Updated 05/10/23 @ 17:24 by Marcia Linton APRN) Diabetes mellitus HLD (hyperlipidemia) HTN (hypertension) THOMAS (iron deficiency anemia) Surgical History Surgical History (Updated 05/10/23 @ 17:24 by Marcia Linton APRN) History of left knee surgery S/P total left hip arthroplasty Social History Social History (Updated 05/10/23 @ 18:55 by Marcia Linton APRN) Social History: Currently lives at home alone. Surrogate decision maker: Adin Call, son and Sabino Booker, son. Full code. Smoking status: Never smoker Additional smoking assessment comments: DENIES ANY FORM OF TOBACCO USE Alcohol intake: current Alcohol use details: ONE DRINK PER MONTH Substance use: never Substance use type: does not use Lack of Transportation: No Lack of Food: Never True Current Housing: I Have Housing Concerned About Future Housing: No Difficulty Paying Gas/Electric Bills: No Difficulty Paying for Meds: No Currently Unemployed: No Education: High School Diploma/GED Difficulty w/ Childcare or Family Care: No Living arrangements: alone Spiritual care concerns: No Meds Home Medications and Allergies Home Medications Medication Instructions Recorded Confirmed Type aspirin 81 mg tablet 81 mg PO DAILY 04/20/21 05/10/23 History ferrous sulfate 325 mg (65 mg 325 mg PO DAILY 04/20/21 05/10/23 History iron) tablet cholecalciferol (vitamin D3) 25 25 mcg PO DAILY 10/05/22 05/10/23 History mcg (1,000 unit) capsule cyclobenzaprine 10 mg tablet 10 mg PO QHS PRN muscle spasm #30 10/05/22 04/21/23 Rx tabs diclofenac sodium 75 mg 75 mg PO BID 10/05/22 05/10/23 H
[2023-05-10] MEDS: oxyCODONE HCL (*CRX) 2.5 MG TAB IR PO ×2 (18:07→20:43)
[2023-05-10] MEDS: SENNA/DOCUSATE SODIUM TABLET 2 TAB PO (18:07)
[2023-05-10] MEDS: ceFAZolin 1 GM/NS 50 ML 1 GM/50 ML BAG IVPB ×2 (18:08→23:12)
[2023-05-10] MEDS: SODIUM CHLORIDE 0.9% IV 1,000 ML 125 ML IV CONT (18:08)
[2023-05-10] MEDS: VANCOMYCIN 1,000 MG/NS 250 ML 1,000 MG/250 ML BAG 250 MG IVPB (19:46)
[2023-05-10] MEDS: FAMOTIDINE 20 MG TABLET PO (20:43)
[2023-05-10 22:16] LABS: Glucose Point of Care 158 mg/dl (65-105)
[2023-05-11 00:02] VITALS: BP 128/63; PULSE 99; RESP 16; TEMP 37.5; O2SAT 100
[2023-05-11] MEDS: oxyCODONE HCL (*CRX) 2.5 MG TAB IR PO ×2 (01:23→04:50)
[2023-05-11 04:02] VITALS: BP 119/53; PULSE 94; RESP 18; TEMP 37.6; O2SAT 100
[2023-05-11] MEDS: ACETAMINOPHEN 500 MG TABLET 1000 MG PO ×2 (04:03→09:00)
[2023-05-11] MEDS: DOXYCYCLINE HYCLATE 100 MG TABLET PO (04:50)
--- NOTE | 2023-05-11 05:34 | PC.NURSE ---
Pt tolerating PO well. No complaints of nauseousness/vomiting. Pt able to tolerate using Carmen Steady to bathroom. Pt maintained proper body alignment throughout the night along with proper pillow placement. Continued monitoring.
[2023-05-11] MEDS: VANCOMYCIN 1,000 MG/NS 250 ML 1,000 MG/250 ML BAG 250 MG IVPB (06:09)
[2023-05-11 07:03] LABS: Basophils Percent Auto 0.2 % (0.2-1.2); Eosinophils Percent Auto 0.1 % (0-4.4); Hematocrit 30.4 % (37.0-47.0); Hemoglobin 9.2 g/dL (12.0-15.0); Immature Granulocyte Absolute 0.04 K/mm3 (0.00-0.031); Immature Granulocyte Percent A 0.4 % (0-0.5); Lymphocytes Absolute Auto 1.35 K/mm3 (0.9-3.2); Lymphocytes Percent Auto 14.7 % (18.3-44.2); Mean Corpuscular HGB Conc 30.3 g/dl (32-36); Mean Corpuscular Hemoglobin 27.6 pg (26-34); Mean Corpuscular Volume 91.3 fl (80-100); Mean Platelet Volume 11.2 fl (7.4-10.4); Monocytes Absolute Auto 0.8 K/mm3 (0.1-0.6); Monocytes Percent Auto 8.8 % (2.6-8.5); Neutrophils Percent Auto 75.8 % (45.5-73.1); Platelet Count Result 163 k/mm3 (150-375); Red Blood Count 3.33 M/mm3 (4.2-5.4); Red Cell Distribution Width 13.2 % (11.5-14.5); White Blood Count 9.2 K/mm3 (4.5-10.0)
[2023-05-11 07:24] LABS: Anion Gap 4 mmol/L (8-16); Blood Urea Nitrogen 13 mg/dL (7-17); Calcium 7.8 mg/dL (8.4-10.2); Carbon Dioxide 26 mmol/L (22-30); Chloride 106 mmol/L (98-107); Estimated CRCL calculation 91 ml/min; Estimated Glomerular Filt Rate > 60; Glucose 149 mg/dL (65-110); Potassium 3.5 mmol/L (3.4-5.0); Sodium 136 mmol/L (137-145)
--- NOTE | 2023-05-11 07:26 | PM.PNORT ---
Subjective Subjective Date/Time Seen: 05/11/23 07:26 Interval history: Postop day 1 patient is afebrile vital signs are stable. Morning labs are noted. Dressing is out. Incision is dry. Neurovascularly she is intact. Patient was up walking yesterday of physical therapy. She has been up to the restroom multiple times. Pain is well controlled. Overall patient is doing well. She will work with therapy today and then be discharged home later this afternoon. Objective Data Vital Signs Vital Signs: Vital Signs - 24 hr 05/10/23 11:52 05/10/23 12:05 05/10/23 12:20 Temperature 36.2 C L Pulse Rate 79 80 81 Respiratory Rate 18 20 21 H Blood Pressure 130/63 138/90 125/60 Pulse Oximetry 100 100 100 Oxygen Delivery Simple Face Mask Simple Face Mask Room Air Oxygen Flow Rate 6 6 05/10/23 12:35 05/10/23 12:50 05/10/23 13:05 Temperature 36.4 C L Pulse Rate 90 89 92 Respiratory Rate 17 17 22 H Blood Pressure 108/63 111/61 105/54 L Pulse Oximetry 100 99 97 Oxygen Delivery Room Air Room Air Room Air Oxygen Flow Rate 05/10/23 13:20 05/10/23 13:35 05/10/23 13:50 Temperature 37.1 C Pulse Rate 94 99 101 H Respiratory Rate 21 H 19 20 Blood Pressure 102/56 L 102/54 L 143/92 H Pulse Oximetry 98 98 98 Oxygen Delivery Room Air Room Air Room Air Oxygen Flow Rate 05/10/23 14:00 05/10/23 14:15 05/10/23 14:40 Temperature 35.9 C L Pulse Rate 98 99 95 Respiratory Rate 18 20 20 Blood Pressure 145/91 H 135/87 141/77 H Pulse Oximetry 97 98 100 Oxygen Delivery Room Air Room Air Oxygen Flow Rate 05/10/23 14:55 05/10/23 15:25 05/10/23 16:01 Temperature 36.7 C 36.5 C Pulse Rate 90 85 Respiratory Rate 18 18 Blood Pressure 142/66 H 136/77 Pulse Oximetry 100 99 Oxygen Delivery Room Air Oxygen Flow Rate 05/10/23 16:25 05/10/23 20:02 05/10/23 20:00 Temperature 36.7 C 37.2 C Pulse Rate 97 83 Respiratory Rate 16 18 Blood Pressure 126/69 135/62 Pulse Oximetry 100 100 Oxygen Delivery Room Air Oxygen Flow Rate 05/11/23 00:02 05/11/23 04:02 Temperature 37.5 C 37.6 C H Pulse Rate 99 94 Respiratory Rate 16 18 Blood Pressure 128/63 119/53 L Pulse Oximetry 100 100 Oxygen Delivery Oxygen Flow Rate Intake/Output Intake/Output: Intake & Output 05/08/23 05/09/23 05/10/23 05/11/23 23:59 23:59 23:59 23:59 Intake Total 1525 1150 Output Total 70 Balance 1525 1080 Meds/Results Medications: Active Medications Generic Name Dose Route Start Last Admin Trade Name Freq PRN Reason Stop Dose Admin Acetaminophen 1,000 mg 05/10/23 15:00 05/11/23 04:03 Acetaminophen 500 Mg Tablet PO 1,000 mg Q6H JN Administration Apixaban 2.5 mg 05/11/23 09:00 Apixaban 2.5 Mg Tablet PO Q12HR [facility] Aspirin 81 mg 05/11/23 09:00 Aspirin 81 Mg Enteric Tablet PO QAM [facility] Celecoxib 100 mg 05/11/23 09:00 Celecoxib 100 Mg Capsule PO DAILY [facility] Dextrose 12.5 gm 05/10/23 17:36 Dextrose 50% 25 Gm/50 Ml Syringe IV PUSH PRN PRN Hypoglycemia Protocol Doxycycline Hyclate 100 mg 05/11/23 06:00 05/11/23 04:50 Doxycycline Hyclate 100 Mg Tablet PO 100 mg Q12H JN Administration Famotidine 20 mg 05/10/23 21:00 05/10/23 20:43 Famotidine 20 Mg Tablet PO 20 mg Q12HR JN Administration Ferrous Sulfate 325 mg 05/11/23 09:00 Ferrous Sulfate [address] BY MOUTH DAILY [facility] Glucagon 1 mg 05/10/23 17:36 Glucagon For Inj 1 Mg Vial IM PRN PRN Hypoglycemia Protocol Glucose 15 gm 05/10/23 17:36 Glucose Oral Gel 15 Gm Of Glucse In 37.5 Gm Tube PO PRN PRN Hypoglycemia Protocol Hydroxyzine HCl 50 mg 05/10/23 14:17 Hydroxyzine Hcl 25 Mg Tablet PO Q4H PRN Itching Cefazolin Sodium 1 gm in 50 mls @ 100 mls/hr 05/10/23 16:00 05/10/23 23:42 Ancef 1 Gm/Ns 50 Ml IVPB 05/11/23 08:29 Infused Q8H JN Infusion Vancomycin HCl 1,000 mg in 250 mls
--- NOTE | 2023-05-11 07:31 | PM.DS ---
DS: Admitting Diagnosis Discharge Date 05/11 Admitting Diagnosis Left hip DJD DS: Discharge Diagnosis Discharge Diagnosis (1) Hip arthritis: Code(s): M16.10 - Unilateral primary osteoarthritis, unspecified hip Status: Acute DS: Summary Hospital Course Hospital Course: 67-year-old female who underwent left anterior total hip arthroplasty on 05/10. Underwent the procedure without complications. Postoperatively she has been afebrile vital signs are stable. She did have some nausea overnight after surgery. No emesis. Patient is weight-bearing as tolerated. Her bones were a little softer in time surgery therefore going to have her use a walker for the 1st month. She is on Eliquis for DVT prophylaxis. She was up walking the day of surgery pain is well controlled. She is on scheduled Tylenol as well as oxycodone 2.5 mg. She also go home with a 10 day course of Celebrex 100 mg daily. She will be on doxycycline for 10 days postop as well. We will also give her MiraLax and Senokot for constipation. Patient was advised to keep leg elevated home to prevent swelling. If she has any issues questions or concerns she is to call the office otherwise we will see her at her appointments. Time Spent with Patient Time attestation: Total time spent providing and/or coordinating discharge services: DS: Data Data Completed and Pending Labs on day of discharge: Labs from last 24 hours 05/11/23 05/10/23 05/10/23 06:16 20:38 13:48 WBC 9.2 RBC 3.33 L Hgb 9.2 L 12.0 Hct 30.4 L 41.8 MCV 91.3 MCH 27.6 MCHC 30.3 L RDW 13.2 Plt Count 163 MPV 11.2 H Immature Gran % (Auto) 0.4 Neut % (Auto) 75.8 H Lymph % (Auto) 14.7 L [place] % (Auto) 8.8 H Eos % (Auto) 0.1 Baso % (Auto) 0.2 Lymph # (Auto) 1.35 [place] # (Auto) 0.8 H Eos # (Auto) 0.0 Baso # (Auto) 0.0 Abs Immat Gran (auto) 0.04 H Absolute Neuts (auto) 7.0 H Absolute Nucleated RBC 0.0 Nucleated RBC % 0.0 Sodium 136 L Potassium 3.5 Chloride 106 Carbon Dioxide 26 Anion Gap 4 L BUN 13 D Creatinine 0.60 L Estim Creat Clear Calc 91 Estimated GFR > 60 Glucose 149 H POC Capillary Glucose 158 H Calcium 7.8 L Antibody Screen 05/10/23 05/10/23 11:57 06:36 WBC RBC Hgb Hct MCV MCH MCHC RDW Plt Count MPV Immature Gran % (Auto) Neut % (Auto) Lymph % (Auto) [place] % (Auto) Eos % (Auto) Baso % (Auto) Lymph # (Auto) [place] # (Auto) Eos # (Auto) Baso # (Auto) Abs Immat Gran (auto) Absolute Neuts (auto) Absolute Nucleated RBC Nucleated RBC % Sodium Potassium Chloride Carbon Dioxide Anion Gap BUN Creatinine Estim Creat Clear Calc Estimated GFR Glucose POC Capillary Glucose 235 H Calcium Antibody Screen Negative Discharge Plan Discharge Patient Disposition: Home, Self-Care Discharge Instructions: CARMELO CARNES M.D [facility] [address] [place] [id number] POST-OPERATIVE DISCHARGE INSTRUCTIONS ANTERIOR TOTAL HIP ARTHROPLASTY 1. Move toes/feet up and down every hour while awake. 2. Be up walking every hour while awake. 3. Use cane in hand opposite of side of hip surgery or walker as comfort allows. Avoid sitting in a chair unless eating, receiving visitors or using the toilet. 4. When resting, lie on back with leg elevated above heart to minimize swelling. Significant swelling could indicate a blood clot and if this occurs, call the office (or go to the ER) to have a venous ultrasound performed. 5. Wound Care: Keep dry sponge on wound for 2 weeks. Use minimal tape. 6. Follow weight bearing status as instructed. 7. May shower with dressing off. Patient Instructions: Apixaban (By mouth), Total Hip Replacement (DC) Stand Alone Forms: General Discharge Instructions Follow-up/Refe
[2023-05-11 08:02] VITALS: BP 130/50; PULSE 81; RESP 14; TEMP 37.2; O2SAT 95
[2023-05-11 08:54] LABS: Glucose Point of Care 150 mg/dl (65-105)
[2023-05-11] MEDS: polyethylene glycoL 3350 17 GM POWD.PACK PO (08:57)
[2023-05-11] MEDS: FERROUS SULFATE 325 MG TABLET DR BY MOUTH (08:57)
[2023-05-11] MEDS: PRAVASTATIN SODIUM 20 MG TABLET 40 MG PO (08:57)
[2023-05-11] MEDS: FAMOTIDINE 20 MG TABLET PO (09:00)
[2023-05-11] MEDS: MULTIVITAMINS THERAPEUTIC TAB (*BKC) 1 TABLET PO (09:00)
[2023-05-11] MEDS: SENNA/DOCUSATE SODIUM TABLET 2 TAB PO (09:00)
[2023-05-11] MEDS: LOSARTAN POTASSIUM 50 MG TABLET PO (09:00)
[2023-05-11] MEDS: ASPIRIN 81 MG ENTERIC TABLET PO (09:01)
[2023-05-11] MEDS: APIXABAN 2.5 MG TABLET PO (09:01)
[2023-05-11] MEDS: CELECOXIB 100 MG CAPSULE PO (09:01)
[2023-05-11] MEDS: CHOLECALCIFEROL 1,000 UNITS TABLET 1000 UNITS PO (09:01)
[2023-05-11] MEDS: ceFAZolin 1 GM/NS 50 ML 1 GM/50 ML BAG IVPB (09:05)
--- NOTE | 2023-05-11 10:13 | P.PNAN_ITS ---
Anes - Prog Note Post-Op Date/Time: 05/11/23 10:13 Cardiovascular status: normal Respiratory status: normal Airway patency: baseline Mental status: baseline Post-Op hydration status: normal Vital Signs: Last Vital Signs Temp 98.9 F 05/11/23 08:02 Pulse 81 05/11/23 08:02 Resp 14 05/11/23 08:02 BP 130/50 L 05/11/23 08:02 Pulse Ox 95 05/11/23 08:02 O2 Del Method Room Air 05/10/23 20:00 O2 Flow Rate 6 05/10/23 12:05 Pain Score (VAS): 0/10 I/O: Intake & Output 05/10/23 05/11/23 05/11/23 23:59 07:59 15:59 Intake Total 475 1400 286 Output Total 70 Balance 475 1330 286 Laboratory Tests 05/11/23 06:16 05/11/23 06:16 05/10/23 05/10/23 05/10/23 11:57 13:48 20:38 WBC RBC Hgb 12.0 Hct 41.8 MCV MCH MCHC RDW Plt Count MPV Immature Gran % (Auto) Neut % (Auto) Lymph % (Auto) [place] % (Auto) Eos % (Auto) Baso % (Auto) Lymph # (Auto) [place] # (Auto) Eos # (Auto) Baso # (Auto) Abs Immat Gran (auto) Absolute Neuts (auto) Absolute Nucleated RBC Nucleated RBC % Sodium Potassium Chloride Carbon Dioxide Anion Gap BUN Creatinine Estim Creat Clear Calc Estimated GFR Glucose POC Capillary Glucose 235 H 158 H Calcium 05/11/23 05/11/23 06:16 08:51 WBC 9.2 RBC 3.33 L Hgb 9.2 L Hct 30.4 L MCV 91.3 MCH 27.6 MCHC 30.3 L RDW 13.2 Plt Count 163 MPV 11.2 H Immature Gran % (Auto) 0.4 Neut % (Auto) 75.8 H Lymph % (Auto) 14.7 L [place] % (Auto) 8.8 H Eos % (Auto) 0.1 Baso % (Auto) 0.2 Lymph # (Auto) 1.35 [place] # (Auto) 0.8 H Eos # (Auto) 0.0 Baso # (Auto) 0.0 Abs Immat Gran (auto) 0.04 H Absolute Neuts (auto) 7.0 H Absolute Nucleated RBC 0.0 Nucleated RBC % 0.0 Sodium 136 L Potassium 3.5 Chloride 106 Carbon Dioxide 26 Anion Gap 4 L BUN 13 D Creatinine 0.60 L Estim Creat Clear Calc 91 Estimated GFR > 60 Glucose 149 H POC Capillary Glucose 150 H Calcium 7.8 L Post-procedural complaints: none Patient Feedback: Patient satisfied with anesthetic care.
--- NOTE | 2023-05-11 11:52 | PM.IMPN ---
Progress Note: A&P Assessment and Plan (1) S/P total left hip arthroplasty: Code(s): Z96.642 - Presence of left artificial hip joint Status: Acute Assessment and Plan: See Ortho notes for postsurgical alf Diclofenac and Flexeril held. Started on Celebrex. OT and PT eval and treat (2) Diabetes mellitus: Code(s): E11.9 - Type 2 diabetes mellitus without complications Status: Acute Assessment and Plan: Continue home Januvia hypoglycemia protocol POC blood glucose ACHS correct regimen ordered - low dose TIDWM and HS last A1C 5.1 on 04/21/23 (3) HTN (hypertension): Code(s): I10 - Essential (primary) hypertension Status: Acute Assessment and Plan: Continue home losartan Monitor blood pressure Subjective Date/time seen: 05/11/23 11:52 Interval history: Patient doing well today with no new complaints at this time. will continue to follow with you. Okay to discharge home per hospitalist team. Exam Narrative: GENERAL: Comfortable, no acute distress HENMT: moist mucous membranes EYES: EOM intact b/l NECK: no lymphadenopathy RESPIRATORY: clear to auscultation CARDIO: RRR GI: soft, nontender, bowel sounds present SKIN: no rashes EXTREMITIES: no edema, redness or tenderness Objective Data Vital Signs Vital Signs: Vital Signs - 24 hr 05/10/23 12:05 05/10/23 12:20 05/10/23 12:35 Temperature Pulse Rate 80 81 90 Respiratory Rate 20 21 H 17 Blood Pressure 138/90 125/60 108/63 Pulse Oximetry 100 100 100 Oxygen Delivery Simple Face Mask Room Air Room Air Oxygen Flow Rate 6 05/10/23 12:50 05/10/23 13:05 05/10/23 13:20 Temperature 97.5 F L 98.8 F Pulse Rate 89 92 94 Respiratory Rate 17 22 H 21 H Blood Pressure 111/61 105/54 L 102/56 L Pulse Oximetry 99 97 98 Oxygen Delivery Room Air Room Air Room Air Oxygen Flow Rate 05/10/23 13:35 05/10/23 13:50 05/10/23 14:00 Temperature Pulse Rate 99 101 H 98 Respiratory Rate 19 20 18 Blood Pressure 102/54 L 143/92 H 145/91 H Pulse Oximetry 98 98 97 Oxygen Delivery Room Air Room Air Room Air Oxygen Flow Rate 05/10/23 14:15 05/10/23 14:40 05/10/23 14:55 Temperature 96.6 F L 98.0 F Pulse Rate 99 95 90 Respiratory Rate 20 20 18 Blood Pressure 135/87 141/77 H 142/66 H Pulse Oximetry 98 100 100 Oxygen Delivery Room Air Oxygen Flow Rate 05/10/23 15:25 05/10/23 16:01 05/10/23 16:25 Temperature 97.7 F 98.1 F Pulse Rate 85 97 Respiratory Rate 18 16 Blood Pressure 136/77 126/69 Pulse Oximetry 99 100 Oxygen Delivery Room Air Oxygen Flow Rate 05/10/23 20:02 05/10/23 20:00 05/11/23 00:02 Temperature 99 F 99.5 F Pulse Rate 83 99 Respiratory Rate 18 16 Blood Pressure 135/62 128/63 Pulse Oximetry 100 100 Oxygen Delivery Room Air Oxygen Flow Rate 05/11/23 04:02 05/11/23 08:02 Temperature 99.7 F H 98.9 F Pulse Rate 94 81 Respiratory Rate 18 14 Blood Pressure 119/53 L 130/50 L Pulse Oximetry 100 95 Oxygen Delivery Oxygen Flow Rate Intake/Output Intake/Output: Intake & Output 05/08/23 05/09/23 05/10/23 05/11/23 23:59 23:59 23:59 23:59 Intake Total 1525 1686 Output Total 70 Balance 1525 1616 Meds/Results Medications: Active Medications Generic Name Dose Route Start Last Admin Trade Name Freq PRN Reason Stop Dose Admin Acetaminophen 1,000 mg 05/10/23 15:00 05/11/23 09:00 Acetaminophen 500 Mg Tablet PO 1,000 mg Q6H JN Administration Apixaban 2.5 mg 05/11/23 09:00 05/11/23 09:01 Apixaban 2.5 Mg Tablet PO 2.5 mg Q12HR JN Administration Aspirin 81 mg 05/11/23 09:00 05/11/23 09:01 Aspirin 81 Mg Enteric Tablet PO 81 mg QAM JN Administration Celecoxib 100 mg 05/11/23 09:00 05/11/23 09:01 Celecoxib 100 Mg Capsule PO 100 mg DAILY JN Administration Dextrose 12.5 gm 05/10/23 17:36 Dextrose 50% 25 Gm/50 Ml Syringe IV PUSH PRN
[2023-05-11 11:55] LABS: Glucose Point of Care 167 mg/dl (65-105)
[2023-05-11 12:02] VITALS: BP 97/55; PULSE 103; RESP 14; TEMP 37; O2SAT 100
== END 2023-05-11 14:30 | disposition home or self-care (01) ==
LOC: ANHSURGERY 05:47 → ANH3MEDSUR 14:22
PROVIDERS: Physician Assistant Surgical; PCP Physician Assistant; Visit Provider Orthopaedic Surgery
PROC: (CPT 27130; principal; 2023-05-10 07:30)
DX: M16.12 Unilateral primary osteoarthritis, left hip (principal); E11.9 Type 2 diabetes mellitus without complications; I10 Essential (primary) hypertension; E78.5 Hyperlipidemia, unspecified; E66.9 Obesity, unspecified; Z68.35 Body mass index [BMI] 35.0-35.9, adult
CPT/HCPCS: 27130; 36415; 73501; 80048; 80307; 82040; 82948; 83036; 85014; 85018; 85025; 86850; 86900; 86901; 87081; 93005; 97110; 97116; 97161; 97165; 97530; 97535; 99199; A9270; C1776; J0171; J0690; J1170; J1200; J1885; J2250; J2270; J2405; J2795; J3010; J3370; J7030; J7120

== ENCOUNTER 2023-07-19 12:05 | Outpatient (CLI) | payer MEDICARE, MEDICAID, SELFPAY ==
[2023-07-19 12:50] LABS: Basophils Percent Auto 0.7 % (0.2-1.2); Eosinophils Absolute Auto 0.1 K/mm3 (0-0.3); Eosinophils Percent Auto 2.2 % (0-4.4); Hematocrit 38.2 % (37.0-47.0); Hemoglobin 11.6 g/dL (12.0-15.0); Immature Granulocyte Absolute 0.01 K/mm3 (0.00-0.031); Immature Granulocyte Percent A 0.2 % (0-0.5); Lymphocytes Absolute Auto 1.69 K/mm3 (0.9-3.2); Lymphocytes Percent Auto 40.5 % (18.3-44.2); Mean Corpuscular HGB Conc 30.4 g/dl (32-36); Mean Corpuscular Hemoglobin 27.3 pg (26-34); Mean Corpuscular Volume 89.9 fl (80-100); Mean Platelet Volume 10.7 fl (7.4-10.4); Monocytes Absolute Auto 0.3 K/mm3 (0.1-0.6); Monocytes Percent Auto 7.4 % (2.6-8.5); Platelet Count Result 208 k/mm3 (150-375); Red Blood Count 4.25 M/mm3 (4.2-5.4); Red Cell Distribution Width 14.1 % (11.5-14.5); White Blood Count 4.2 K/mm3 (4.5-10.0)
[2023-07-19 13:07] LABS: Alanine Aminotransferase 11 U/L (6-35); Albumin Level 3.8 g/dL (3.5-5.1); Alkaline Phosphatase 89 U/L (38-126); Anion Gap 4 mmol/L (8-16); Aspartate Amino Transferase 21 U/L (14-36); Bilirubin,Total 0.7 mg/dL (0.2-1.3); Blood Urea Nitrogen 13 mg/dL (7-17); Calcium 8.9 mg/dL (8.4-10.2); Carbon Dioxide 28 mmol/L (22-30); Chloride 107 mmol/L (98-107); Cholesterol 154 mg/dL (0-200); Estimated Glomerular Filt Rate > 60; Glucose 96 mg/dL (65-110); HDL Direct 57 mg/dL; Hemoglobin A1C 5.3 % (<5.7); Potassium 3.8 mmol/L (3.4-5.0); Sodium 139 mmol/L (137-145); Triglycerides 74 mg/dL (<150)
[2023-07-19 13:18] LABS: LDL Cholesterol Direct 64 mg/dL
[2023-07-19 13:34] LABS: Thyroid Stimulating Hormone 0.017 uIU/mL (0.465-4.680)
[2023-07-19 13:50] LABS: Creatinine Urine 187.2 mg/dL
[2023-07-19 13:53] LABS: MALB Creatinine Ratio 8.7 mg/g (0-30); Microalbumin Urine Random 16.3 mg/L (0-16.7)
[2023-07-19 14:13] LABS: Folic Acid > 20.0 ng/mL (2.76->20)
== END 2023-07-19 12:06 | disposition home or self-care (01) ==
LOC: ANHLAB 12:06
PROVIDERS: PCP Physician Assistant; Visit Provider Physician Assistant
DX: R53.83 Other fatigue (principal); E11.9 Type 2 diabetes mellitus without complications
CPT/HCPCS: 36415; 80053; 80061; 82043; 82607; 82746; 83036; 84443; 85025

== ENCOUNTER 2023-12-27 15:04 | Outpatient (CLI) | payer MEDICARE, MEDICAID, SELFPAY ==
[2023-12-27 16:22] LABS: Thyroid Stimulating Hormone 0.213 uIU/mL (0.465-4.680)
[2023-12-27 16:23] LABS: Free T4 Free Thyroxine 1.14 ng/mL (0.78-2.19)
== END 2023-12-27 15:05 | disposition home or self-care (01) ==
LOC: ANHLAB 15:08
PROVIDERS: PCP Physician Assistant; Visit Provider Physician Assistant
DX: R79.89 Other specified abnormal findings of blood chemistry (principal); I10 Essential (primary) hypertension
CPT/HCPCS: 36415; 84439; 84443

== ENCOUNTER 2024-03-29 13:10 | Outpatient (CLI) | payer MEDICARE, MEDICAID, SELFPAY ==
--- NOTE | ~2024-03-29 | MR_ITS ---
EXAMINATION: MR lumbar spine wo con DATE: 03/29/2024 14:52 INDICATION: Lumbar radicular pain TECHNIQUE: Magnetic resonance imaging (MRI) of the lumbar spine was performed without intravenous con trast. Sequences included sagittal T2-weighted FSE, sagittal T2-weighted FS FSE, sagittal T1-weighted FSE, and axial T2-weighted FSE. COMPARISON: 10/21/2022 FINDINGS: 20 degrees lumbar levoscoliosis. 3 mm anterolisthesis L3 on L4 and L4 on L5. 2 mm retrolisthesis L5 o n S1. Vertebral body heights are normal. Severe left-sided disc height loss at L5-S1 and severe right -sided disc height loss at L2-L3 through L4-L5. There there is associated fibrovascular degenerative endplate changes most prominent at L4-L5 and L5-S1. Marrow signal is otherwise normal. Mild disc heig ht loss at L1-L2. Severe left-sided disc height loss at T10-T11 and moderate left-sided predominant d isc height loss at T9-T10 and T11-T12. The conus medullaris terminates at L1-L2. There is normal sign al in the caudal spinal cord. Paravertebral soft tissues are unremarkable. The following disc levels are specifically discussed: T12-L1: Disc is minimally bulging.. There is hypertrophy of the ligamentum flavum. There is moderate right and severe left facet joint osteoarthritis. There is mild bilateral neural foraminal stenosis. There is mild central canal stenosis. L1-L2: Disc is bulging. There is hypertrophy of the ligamentum flavum. There is severe bilateral fac et joint osteoarthritis. There is moderate bilateral neural foraminal stenosis. There is mild central canal stenosis. L2-L3: Disc is bulging. There is hypertrophy of the ligamentum flavum. There is moderate left and se brianda right facet joint osteoarthritis. There is moderate right and mild to moderate left neural keren inal stenosis. There is mild to moderate central canal stenosis. L3-L4: Disc is bulging with annular fissure and central disc extrusion with disc material extending u p to 6 mm cephalad to the level of the inferior endplate of L3. There is moderate left and severe ri ght facet joint osteoarthritis. There is moderate bilateral, right greater than left neural foraminal stenosis. There is severe central canal stenosis. L4-L5: Disc is bulging with annular fissure and, central disc extrusion with disc material extending up to 7 mm cephalad to the level of the inferior endplate of L4. There is hypertrophy of the ligament um flavum. There is severe bilateral facet joint osteoarthritis. There is moderate left and moderate to severe right neural foraminal stenosis. There is severe central canal stenosis. L5-S1: Disc is bulging. There is severe bilateral facet joint osteoarthritis. There is moderate to se brianda left and moderate right neural foraminal stenosis. There is mild central canal stenosis. IMPRESSION: 1. 20 degrees lumbar levoscoliosis with severe spondylosis. Reviewed, dictated and finalized at location A.
[2024-03-29 15:58] LABS: Thyroid Stimulating Hormone 0.347 uIU/mL (0.465-4.680)
== END 2024-03-29 13:11 | disposition home or self-care (01) ==
LOC: ANHIMG 13:13
PROVIDERS: PCP Internal Medicine; Referring Provider Internal Medicine; Visit Provider Nurse Practitioner Family
DX: M41.86 Other forms of scoliosis, lumbar region (principal); R53.83 Other fatigue; R79.89 Other specified abnormal findings of blood chemistry
CPT/HCPCS: 36415; 72148; 84439; 84443

== ENCOUNTER 2025-01-15 15:19 | Outpatient (CLI) | payer MEDICARE, MEDICAID, SELFPAY ==
--- NOTE | ~2025-01-15 | MM_ITS ---
EXAMINATION: MM screening echo BI w eduardo HISTORY: Screening TECHNIQUE: Craniocaudal and mediolateral oblique 3-D tomosynthesis images were obtained and synthetic 2-D images were generated. CAD analysis was submitted and interpreted. COMPARISON: No prior mammogram is available for comparison at this institution. BREAST PARENCHYMAL COMPOSITION: Not dense: There are scattered areas of fibroglandular density. FINDINGS: There is no evidence of suspicious mass, calcification, or architectural distortion to sugg est malignancy in either breast. There has been no suspicious interval change. IMPRESSION: 1. No mammographic evidence of malignancy. 2. Recommend routine screening mammography in one year. BI-RADS Category 1: Negative Reviewed, dictated and finalized at location A.
--- OUTSIDE RECORDS SUMMARY | 2025-01-15 17:12 | XMS_ITS | Clinical Summary ---
Author Organization [facility] Address [address], [facility] [place] [place] [address] Phone Care Team Providers Care Litigation Assistant Name Role Phone Zen Moura DO Unavailable Provider, Unknown Primary Care Provider Unavaila ble Medications polyethylene glycol (MIRALAX) Powder Mix the entire bottle with 64 oz of a clear liquid. Use as directed by the office for colonoscopy prep. 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 Gender Identity Not on file Sexual Orientation Not on file Plan of Treatment Health Maintenance Due Date Last Done Comments DEXA Bone Density 1955 Hepatitis C Virus (HCV) Screening 1955 TdaP Immunization 1955 Cologuard 2003 Immunochemical Fecal Occult Blood 2003 Mammogram 2003 Pneumococcal Immunization (5 0+ years) (1 of 1 - PCV) 2003 Zoster Immunization (1 of 2) 2003 Influenza Immunization (#1) 2024 SARS-COV-2 Immunization ( season) 2024 08/23/2021, 09/16/2020, 08/19/2020 Colonoscopy 08/27/2025 08/27/2015 Colorectal Cancer Screening 08/27/2025 Respiratory Syncytial Virus (RSV) Immunization (Adult) (1 - 1-dose 75+ series) 2028 Hepatitis B Immunization Aged Out No longer eligible based on patient's age to complete this topic Meningococcal Immunization (ACWY) Aged Out No longer eligible b ased on patient's age to complete this topic Rotavirus Immunization Aged Out No lo nger eligible based on patient's age to complete this topic Procedures Procedure Name Priority Date/Time Associated Diagnosis Comments COLONOSCOPY Routine 08/27/2015 from Last 3 Months or Most Recently Relevant to Health Maintenance Results * COLONOSCOPY (08/27/2015) Zen Moura DO PROCEDURE/MINOR SURGICAL ORDERA BLES Final Result from Last 3 Months or Most Recently Relevant to Health Maintenance Insurance MEDICARE MEDICAID [place] Care Teams Litigation Assistant Relationship Specialty Start Date End Date Provider, Unknown UNKNOWN PCP - General 08/27/15 Zen Moura, (work) Gastroenterology 08/27/15
--- OUTSIDE RECORDS SUMMARY | 2025-01-15 17:12 | XMS_ITS | Data Portability ---
Author Organization [place] [facility], Main Office Address [address] [place] [address] Care Team Providers Care Home Restoration Service Supervisor Name Role Phone ANTON PULIDO Primary Care Provider ANTON PULIDO Referring Provider Assessment Encounter Date Assessment Date Assessment LastModified by Organization Details LastModified Time 06/06/2023 06/06/2023 This note is dictated and transcribed by [email or web address] Direct [employer]. Cloth Grader variances may occur. Despite proofreading, typographical errors may occur. Not available 06/06/2023 14:35:33 06/29/2023 06/29/2023 1.: Patient is doing well now 7 weeks 1 day after left total hip replacement. She is walking well feels that she is vastly improved since surgery. 2. Patient has moderately severe tricompartmental osteoarthritis in the right knee. I have discussed options with her. She would like to try cortisone shot today. Risk of side effects including risk of infection were discussed. After ChloraPrep prep, 20 mg of Kenalog and 4 cc of 0.5% ropivacaine were injected into the right knee without difficulty. I will see her back in 6 weeks to assess her progress. 20 minutes were spent in total care this patient with respect to her right knee pain today. More than half the time spent in [id number] care. 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 On the AP pelvis x-ray the soft tissue shadow suggests fatty infiltration of the gluteus minimus. 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 Unfortunately the tendon will continue to tear as she ages. We talked about the option of a cortisone injection which we used to give frequently in the past but with the knowledge that it can weaken the tendon promote more rapid age-related degenerative tearing of the abductor tendon, we are not using these very often now. I have explained the rationale for using a cane opposite hand. When she had the severe arthritis of left hip of course it was beneficial for to use the cane right hand and has what she is used to doing. However, it would be beneficial for her to now switch using a cane in the right hand to using a cane left hand. I explained the rationale for this and explained how this alleviates some tension load applied to the abductor muscle of the right hip during swing through of left leg. I adjusted the height for her practice this little bit today. I reiterated importance of working on losing weight and I will prescribe a Medrol Dosepak for her to see if this will abide anti-inflammatory effect we will order physical therapy for generalized hip strengthening IT band stretching and gait training. Hopefully these measures will give her satisfactory relief. If not it would be appropriate to consider MRI scan to rule out additional pathology confirmed the diagnosis of chronic tearing of the abductor. I am happy to see her back she does not improve over the next month. 30 minutes were spent in total care this patient more than half the time spent in [id number] care. Not available 09/15/2023 21:57:19 12/05/2023 12/05/2023 This note is dictated and transcribed by [employer]. Cloth Grader variances may occur. Despite proofreading, typographical errors may occur. Occasional wrong-word or 'fujte-r-wimn' substitutions may have occurred due to the inherent limitations of voice recording. Read the chart carefully and recognize, using context, where substitutions have occurred. Not available 12/13/2023 16:12:48 08/20/2024 08/20/2024 This note is dictated and transcribed by [employer]. Cloth Grader variances may occur. Despite proofreading, typographical errors may occur. Occasional wrong-word or 'unemu-r-hxqn' substitutions may have occurred due to the inherent limitations of voice recording. Read the chart carefully and recognize, using context, where substitutions have occurred. Not available 09/26/2024 09:17:43 Plan of Treatment Reminders Order Date Submit Date Provider Last Modified By Organization Details Last Modified Time Details Appointments None recorded. Lab None recorded. Referral None recorded. Procedures injection/a spiration joint/bursa (PROC) - in office procedure, administere d by provider 2022 023 [email or web address] In-Office Order, Internal Use Only DO Not Attach Compendium DO Not Attach Compendium, Do Not Delete/merge, [id number] 3 15:47:54 Surgeries None recorded. Imaging XR, hip + pelvis, unilateral 2023 024 [email or web address] [facility], [address] [place] [address], [address], 4 12:31:52 XR, hip + pelvis, unilateral 2022 023 [email or web address] [facility], [address] [place] [address], [phone], 3 11:01:00 XR, knee 2022 023 [email or web address] [facility] [address], [place], [address], 3 11:01:00 Medication Orders Medrol (Rafael) 4 mg tablets in a dose pack 2023 024 [email or web address] [id number], [address], [place], [id number], 4 15:21:36 Kenalog 10 mg/mL suspension for injection 2022 023 [email or web address] [id number], [address], [place], [id number], 4 15:21:17 ropivacaine (PF) 5 mg/mL (0.5 %) injection solution 2022 023 [email or web address] [facility], [address], [place], [place], [phone], 15:22:57 Patient TargetsNo targets recorded. Patient Instructions Encounter Date Encounter Id Patient Instructions Last Modified By Organization Details Last Modified Time 06/06/2023 [id number] diabetic foot care education Not available 06/06/2023 14:36:02 diabetic neuropathy: care instructions [email or web address] Not available 06/06/2023 14:36:02 12/05/2023 [id number] diabetic foot care education Not available 12/13/2023 16:14:29 diabetic neuropathy: care instructions Not available 12/13/2023 16:14:29 Reason for Referral None Reported. Results Created Date Observation Date Name Description Value Unit Range Abnormal Flag Note LastModifiedBy Organization Detail LastModifiedTime 05/10/2005/10/2023 XR, hip + pelvi s, unila teral No observ ation record ed. [email or web address] [place] [id number] [facility] [address], [place], [address], 05/10/2023 13:51:06 06/29/20 23 XR, hip + pelvi s, unila teral No observ ation record ed. [email or web address] [facility] [address], [place], [address], 07/01/2023 15:04:27 06/29/20 23 XR, knee No observ ation record ed. [email or web address] [facility] [address], [place], [address], 07/01/2023 15:03:56 09/14/19 24 XR, hip + pelvi s, unila teral No observ ation record ed. [email or web address] [facility] [address], [place], [address], 09/15/2023 21:53:03 Result Notes None recorded. Problems Name Problem SNOMED Code Status Onset Date Resolution Date Notes Provider Name and Address Organization Details Recorded Time Pain of right hip joint 9947787227285 02 Active 2022 Carley Naik, RMA null, [facility] 3 14:43:05 Pain of right knee joint 2951711228371 00 Active 2022 Emelina Martin, PSYCHIATRIC NURSE PRACTITIONER null, [facility] 3 15:25:39 Dystrophia unguium 67571486 Active 2024 Misael Padilla, DPRosas [address] [facility], [address], [place], [address] , [facility] 5 09:17:46 Arthritis of left knee 4289072299885 104 Active 2020 Not Available [facility] 3 04:44:46 History of total knee arthroplas ty 8745105760323 Active 2020 Not Available [facility] 3 04:44:46 Disorder of trunk 046390835 Active Not Available [facility] 3 04:44:46 Dry skin 80722881 Active 2020 Not Available [facility] 3 04:44:46 Localized, primary osteoarthr itis of the hand 852603852 Active Not Available [facility] 3 04:44:46 Localized, primary osteoarthr itis of the pelvic region and thigh 634980217 Active Not Available [facility] 3 04:44:46 Tibialis posterior tendinitis 452154187 Active 2021 Not Available [facility] 3 04:44:47 Abnormal gait 80836100 Active Not Available [facility] 3 04:44:47 Congenital pes planus 88892319 Active 2022 Not Available [facility] 3 04:44:47 Morbid obesity 387547672 Active Not Available [facility] 3 04:44:47 Osteoarthr itis of knee 225557618 Active Not Available [facility] 3 04:44:47 Shoulder joint pain 359673123 Active Not Available [facility] 3 04:44:47 Low back pain 003383111 Active Not Available [facility] 3 04:44:47 Knee pain Active Not Available [facility] 3 04:44:47 Pain of left hip joint 2089772996558 00 Active 2021 Not Available [facility] 3 04:44:47 Pain in right foot 2248098904380 07 Active Not Available [facility] 3 04:44:47 Trochanter ic bursitis of left hip 3095587092931 03 Active 2021 Not Available [facility] 3 04:44:47 Osteoarthr itis of left hip joint 7297519229368 08 Active 2020 Not Available [facility] 3 04:44:47 Osteoarthr itis of left knee joint 9051688815607 09 Active 2021 Not Available [facility] 3 04:44:47 Osteoarthr itis of right knee joint 0990616748761 00 Active 2020 Not Available [facility] 3 04:44:48 Osteoarthr itis 796959879 Active Not Available [facility] 3 04:44:48 Onychomyco sis of toenails 100187561 Active 2022 Not Available [facility] 3 04:44:48 Disorder of rotator cuff 153625447 Active Not Available [facility] 3 04:44:48 Bunion 636390899 Active Not Available [facility] 3 04:44:48 Foot pain 38510890 Active 2021 Not Available [facility] 3 04:44:48 Carpal tunnel syndrome 29569561 Active Not Available [facility] 3 04:44:48 Diabetes mellitus 80688246 Active Not Available [facility] 3 04:44:48 Ankle instabilit y 329576 Active 2019 Not Available [facility] 3 04:44:48 Pain in limb 03753907 Active Not Available [facility] 3 04:44:49 Problem Notes None recorded. Procedures Surgical History Date Name Laterality Status Provider Name and Address Organization Details Recorded Time 5 Nail Debridement completed Misael Padilla DPM [address], [address], [place], [address], [employer] 09/26/2024 09:17:20 4 Nail Debridement completed Misael Padilla DPM [address], [address], [place], [address], [employer] [facility] 12/13/2023 16:13:42 Imaging Results None recorded. Procedure Notes None recorded. Medical Equipment None Reported. Medications Name Sig Start Date Stop Date Status Note LastModified by Organization Details LastModified Time easy comfort lancets 30g/pull top [facility] 12/04 completed Not Available Not Available Not Available alcohol pads 70 % pads active Not Available Not Available Not Available easy mini eject lancing device [facility] 12/04 completed Not Available Not Available Not Available losartan 50 mg tablet TAKE 1 TABLET BY MOUTH DAILY active Not Available Not Available No t Available cyclobenzap rine 10 mg tablet TAKE 1/2 TO 1 TABLET BY MOUTH TWICE DAILY 12/04 completed Not Available Not Available Not Available amoxicillin 500 mg capsule 08/22 completed Not Available Not Available Not Available prednisone 10 mg tablet 07/14 completed Not Available Not Available Not Available clindamycin HCl 300 mg capsule TAKE 1 CAPSULE BY MOUTH THREE TIMES DAILY 12/04 completed Not Available Not Available Not Available ammonium lactate 12 % lotion APPLY TOPICALLY TO FEET DAILY NEEDED 07/14 completed Not Available Not Available Not Available azithromyci n 250 mg tablet TAKE 2 TABLETS BY MOUTH FOR 1 DAY THEN 1 TABLET EVERY DAY FOR 4 DAYS 01/06 completed Not Available Not Available Not Available pravastatin 40 mg tablet TAKE 1 TABLET BY MOUTH DAILY active Not Available Not Available No t Available ibuprofen 800 mg tablet TAKE 1 TABLET BY MOUTH EVERY 6 TO 8 HOURS NEEDED active Not Available Not Available No t Available fluconazole 150 mg tablet TAKE 1 TABLET BY MOUTH ON EVERY 3RD DAY IF NEEDED 07/14 completed Not Available Not Available Not Available sumatriptan 100 mg tablet 08/22 completed Not Available Not Available Not Available hydrocodone 5 mg-acetamin ophen 325 mg tablet TAKE 1 TABLET BY MOUTH EVERY 6 HOURS NEEDED FOR PAIN active Not Available Not Available No t Available meloxicam 15 mg tablet TAKE 1 TABLET BY MOUTH DAILY active Not Available Not Available No t Available prednisone 20 mg tablet TAKE 3 TABLETS BY MOUTH DAILY 07/14 completed Not Available Not Available Not Available Alcohol Pads TEST ONCE DAILY active Not Available Not Available No t Available Accu-Chek Softclix Lancets USE WITH LANCING DEVICE BID active Not Available Not Available No t Available ciprofloxac in 500 mg tablet 08/22 completed Not Available Not Available Not Available tramadol 50 mg tablet TAKE 1 TABLET BY MOUTH EVERY 6 HOURS 06/29 completed Not Available Not Available Not Available lidocaine-p rilocaine 2.5 %-2.5 % topical cream 12/04 completed Not Available Not Available Not Available prednisone 10 mg tablets in a dose pack Take 1 tab by mouth, 3 times a day for 3 daysTake 1 tab by mouth 2 times a day for 2 daysTake 1 tab by mouth once a day for 1 day 07/14 completed Not Available Not Available Not Available OneTouch Ultra Test strips TEST ONCE DAILY active Not Available Not Available No t Available Kenalog 10 mg/mL suspension for injection in office procedure , administe red by provider 12/04 completed [facility]: [phone]- 20 Not Available Not Available Not Available baclofen 10 mg tablet 08/22 completed Not Available Not Available Not Available misoprostol 200 mcg tablet TAKE 1 TABLET BY MOUTH FOUR TIMES DAILY 06/29 completed Not Available Not Available Not Available diclofenac sodium 75 mg tablet,soila yed release TAKE 1 TABLET BY MOUTH TWICE DAILY 09/14 completed Not Available Not Available Not Available furosemide 20 mg tablet 08/22 completed Not Available Not Available Not Available polyethylen e glycol 3350 17 gram/dose oral powder 08/22 completed Not Available Not Available Not Available methylpredn isolone 4 mg tablets in a dose pack FOLLOW PACKAGE DIRECTION S 12/04 completed Not Available Not Available Not Available albuterol sulfate HFA 90 mcg/actuati on aerosol inhaler INHALE 2 PUFFS BY MOUTH FOUR TIMES DAILY NEEDED FOR SHORTNESS OF BREATH OR WHEEZING 01/06 completed Not Available Not Available Not Available celecoxib 100 mg capsule TAKE 1 CAPSULE BY MOUTH DAILY 06/29 completed Not Available Not Available Not Available ketoconazol e 2 % topical cream APPLY TO THE AFFECTED AREA TOPCAILLY ONCE DAILY 06/29 completed Not Available Not Available Not Available hydrocodone 7.5 mg-acetamin ophen 500 mg tablet 08/22 completed Not Available Not Available Not Available doxycycline hyclate 100 mg tablet TAKE 1 TABLET BY MOUTH EVERY 12 HOURS 06/29 completed Not Available Not Available Not Available naproxen 500 mg tablet TAKE 1 TABLET BY MOUTH TWICE DAILY 01/06 completed Not Available Not Available Not Available amoxicillin 875 mg-potassiu m clavulanate 125 mg tablet TAKE 1 TABLET BY MOUTH EVERY 12 HOURS FOR 10 DAYS 01/06 completed Not Available Not Available Not Available oxycodone 5 mg tablet TAKE 1/2 TABLET BY MOUTH EVERY 4 HOURS NEEDED FOR PAIN 06/29 completed Not Available Not Available Not Available cyclobenzap rine 5 mg tablet 07/14 completed Not Available Not Available Not Available aspirin 2016 active Not Available Not Available Not Avai lable OneTouch Ultra2 Meter kit USE DIRECTED TO TEST BLOOD SUGAR 07/14 completed Not Available Not Available Not Available lidocaine (PF) 10 mg/mL (1 %) injection solution In office injection administe red by the provider 01/06 completed [facility]: [phone]- [phone]- 17 Not Available Not Available Not Available Oysco 500/D 500 mg-5 mcg (200 unit) tablet TK 1 T PO BID 07/14 completed Not Available Not Available Not Available Januvia 100 mg tablet TAKE 1 TABLET BY MOUTH DAILY active Not Available Not Available No t Available diclofenac 1 % topical gel APPLY 2 GRAMS TO RIGHT FOOT AND ANKLE EVERY DAY active Not Available Not Available No t Available OneTouch Delica Lancets 33 gauge TEST BID 07/14 completed Not Available Not Available Not Available sodium,pota ssium,mag sulfates 17.5 gram-3.13 gram-1.6 gram oral soln MIX AND DRINK DIRECTED 06/29 completed Not Available Not Available Not Available Xarelto 10 mg tablet 08/22 completed Not Available Not Available Not Available ropivacaine (PF) 5 mg/mL (0.5 %) injection solution in office procedure , administe red by provider 12/04 completed [facility] [phone] -[phone] Not Available Not Available Not Available OneTouch Verio High Control solution 07/14 completed Not Available Not Available Not Available Eliquis 2.5 mg tablet active Not Available Not Available No t Available Safety Lancets 28 gauge TEST ONCE DAILY active Not Available Not Available No t Available OneTouch Ultra2 Meter USE DIRECTED 12/04 completed Not Available Not Available Not Available Vitals Date Recorded Body height Body mass index (BMI) Body weight Heart rate Respiratory rate Oxygen saturation Oxygen saturation in Arterial blood by Pulse oximetry Systolic blood pressure Diastolic blood pressure Provider Name and Address Organization Details Last Updated DateTime 5 167.64 cm 35.3 kg/m2 18665.7 3 g 96 /min 14 /min 98 % 98 % 112 mm[Hg] 72 mm[Hg] Hannah Merino [employer] 5 15:50:46 Date Recorded Body height Provider Name an d Address Organization Details Last Updated DateTime 09/14/2023 167.64 cm RUBEN Suarez [employer] 09/14/2023 14:31:43 Date Recorded Body height Body mass index (BMI) Body weight Heart rate Respiratory rate Oxygen saturation Oxygen saturation in Arterial blood by Pulse oximetry Systolic blood pressure Diastolic blood pressure Provider Name and Address Organization Details Last Updated DateTime 4 167.64 cm 35.3 kg/m2 11606.7 3 g 87 /min 14 /min 98 % 98 % 104 mm[Hg] 66 mm[Hg] Hannah Merino [employer] 4 15:28:47 Date Recorded Body height Body mass index (BMI) Body weight Heart rate Respiratory rate Oxygen saturation Oxygen saturation in Arterial blood by Pulse oximetry Systolic blood pressure Diastolic blood pressure Provider Name and Address Organization Details Last Updated DateTime 3 167.64 cm 35.3 kg/m2 45730.7 3 g 85 /min 14 /min 98 % 98 % 107 mm[Hg] 61 mm[Hg] Hannah Merino [facility] [employer] [facility] 14:18:12 Date Recorded Body height Provider Name an d Address Organization Details Last Updated DateTime 06/29/2023 167.64 cm RUBEN Suarez [place] [facility] [employer] [facility] 06/29/2023 14:14:47 Social History None recorded. Functional Status Question Answer Note LastModified by Organizat ion Details LastModified Time What is your level of alcohol consumption? None [id number] Information not available 09/28/2022 Mental Status None recorded. Family History Relationship Description Onset Age of this Age Resolved Age Notes LastModified by Organization Details LastModified Time Unspecified Relation Heart disease [id number] Not available 09/28/2022 04:40:56 Unspecified Relation Family history of malignant neoplasm [id number] Not available 09/28/2022 04:40:56 Unspecified Relation Hypertensive disorder [id number] Not available 09/28/2022 04:40:56 Unspecified Relation Diabetes mellitus [id number] Not available 09/28/2022 04:40:57 Unspecified Relation Kidney disease [id number] Not available 09/28/2022 04:40:57 Medical History Condition Response BLINDNESS N KIDNEY STONES N MRSA N CARPAL TUNNEL SYNDROME N LUNG DISEASE/DISORDER N HISTORY OF DRUG ABUSE N COPD N RADIATION / CHEMOTHERAPY N SPORTS INJURY N ANKLE PAIN N BLOOD DISEASES N SCHIZOPHRENIA N SHINGLES N BOWEL PROBLEMS N SHOULDER PAIN N DEPRESSION (INCLUDING POST ) N STROKE/TIA N KNEE PAIN N ULCERS N BENIGN PROSTATIC HYPERPLASIA N OBESITY N GERD/NAUSEA N ANEURYSM N URINARY/BLADDER/KIDNEY PROBLEMS N CORONARY ARTERY DISEASE (CAD) N ADDICTION CONCERNS N USE OF BLOOD THINNERS N SKIN PROBLEMS N EMPHYSEMA N MUSCLE,JOINT OR BONE PROBLEMS N DVT N STOMACH ULCERS N BLOOD CLOTS N USE OF NSAIDS N CONCUSSION OR SPINAL TRAUMA N NEUROPATHY N AIDS/HIV N FRACTURES N ELBOW PAIN N HYPERTENSION N TOURETTE'S N ANXIETY DISORDER N Metal allergy N BLOOD TRANSFUSION N ANEMIA/BLOOD DISORDER N BIPOLAR DISORDER N BRONCHITIS N OSTEOARTHRITIS N TUBERCULOSIS N FOOT PROBLEM N HEART VALVE DISORDERS N ALLERGIES/HAYFEVER N SOFT TISSUE INJURY N INFECTIOUS DISEASE N HEART ARRHYTHMIA N INSOMNIA N RHEUMATOID ARTHRITIS N HIGH CHOLESTEROL / HYPERLIPIDEMIA N EDEMA N CHRONIC PAIN SYNDROME N CAROTID BLOCKAGE N BACK / NECK PROBLEMS N HAVE YOU BEEN HOSPITALIZED OR SEEN IN [facility] IN THE PAST YEAR ? N BURSITIS N HERNIATED DISC N DIALYSIS N FIBROMYALGIA N OSTEOPOROSIS N ARTHRITIS Y NO SIGNIFICANT PAST MEDICAL HISTORY N PERIPHERAL NEUROPATHY N DIABETES, TYPE N HEARTBURN / REFLUX N HEPATITIS / LIVER DISEASE N GOUT N SLEEP DISORDER N ALZHEIMER'S DISEASE N HERPES N SEIZURES/EPILEPSY N HEADACHES/MIGRAINES N VASCULAR DISEASE N HIP PAIN N Blood Disorder N DIZZINESS N HEAD TRAUMA OR INJURY N HEART DISEASE/HEART PROBLEMS N MULTIPLE SCLEROSIS N CARDIAC ARRHYTHMIA N CANCER: SPECIFY N ANESTHESIA COMPLICATIONS N ATRIAL FIBRILLATION N AUTOIMMUNE DISEASE N Gynecological HistoryNo gynecological history recorded. Obstetrics History GPAL:G 0 P 0 0 0 0 Past Encounters Encounter ID Performer Location Encounter Start Date Encounter Closed Date Diagnosis/Indication Diagnosis SNOMED-CT Code Diagnosis ICD10 Code Diagnosis Note [id number] [facility] _[place]HENA_M IGRATION_ DEFAULT_1 _1 , 11/06/2020 00:00:00 11/12/2020 10:19:58 [id number] [facility] ic_[facility] _ATHENA_M IGRATION_ DEFAULT_1 _1 , 02/26/2021 00:00:00 02/26/2021 14:47:45 [id number] Raymundo Taylor MD [facility]_[place] [address] 04/13/2021 00:00:00 04/13/2021 09:33:49 [id number] [facility] _ATHENA_M IGRATION_ DEFAULT_1 _1 , 05/21/2021 00:00:00 05/23/2021 19:42:58 [id number] Raymundo Taylor MD [facility]_[place] [address] 05/25/2021 00:00:00 05/25/2021 09:58:14 [id number] Raymundo Taylor MD [place] [address] 07/20/2021 00:00:00 07/20/2021 10:52:44 [id number] [facility] ic_[facility] _ATHENA_M IGRATION_ DEFAULT_1 _1 , 09/10/2021 00:00:00 09/12/2021 21:08:22 [id number] [facility] _ATHENA_M IGRATION_ DEFAULT_1 _1 , 10/01/2021 00:00:00 10/05/2021 12:30:27 [id number] [facility] _ATHENA_M IGRATION_ DEFAULT_1 _1 , 12/10/2021 00:00:00 12/14/2021 11:25:29 [id number] Anmol Cook MD [facility] [address] [address] 01/06/2022 00:00:00 02/13/2022 10:46:01 [id number] [facility] _ATHENA_M IGRATION_ DEFAULT_1 _1 , 03/25/2022 00:00:00 03/28/2022 21:14:40 [id number] Anmol Cook MD [facility] [address] [address] 07/14/2022 00:00:00 07/14/2022 16:03:58 [id number] Misael Padilla DPM [facility] [address] [facility] [address] [place] [address] 08/25/2022 00:00:00 08/25/2022 14:04:54 [id number] Anmol Cook MD [facility] [address] [address] 09/08/2022 00:00:00 09/08/2022 14:21:11 [id number] Anmol Cook MD [facility] [address] [address] 12/22/2022 14:38:01 12/27/2022 10:05:51 Pain of right hip joint 1703397901 12099 M25.551 [id number] Anmol Cook MD [facility] [address] [address] 02/02/2023 14:57:58 02/06/2023 12:22:10 Osteoarthritis 918792944 M16.11 [id number] MD VIANNEY Andrea_Quintin [address] [address] 04/20/2023 14:52:50 04/21/2023 09:56:14 Pain of left hip joint [id number] M25.855 [id number] MD PASTOR AndreaQuintin [address] [address] 05/25/2023 13:50:54 05/25/2023 14:53:22 Pain of left hip joint [id number] 09093 M25.552 Postoperative visit 1836 38573 Z09 [id number] [facility] [address] [address] 06/06/2023 13:58:41 06/06/2023 14:39:42 Diabetes mellitus [id number] E11.9 Continue diabetic control per PCP Onychomyco sis of toenails [id number] B35.1 Nails 1 through 10 were debrided with sharp mechanical debridemen t without incident. Nails were debrided and greater than 50% length and thickness where needed. [id number] MD PASTOR AndreaQuintin [address] [address] 06/29/2023 14:08:16 07/03/2023 11:01:00 History of total replacement of left hip joint [id number] 988243 Z96.642 Pain of ri ght knee joint [id number] 58500 M25.795 [id number] MD VIANNEY Andrea_Quintin [address] [address] 09/14/2023 14:00:28 09/18/2023 12:31:52 Pain of right hip joint [id number] 67240 M25.749 [id number] Misael Padilla DPM [facility] [address] [address] 12/05/2023 15:15:38 12/14/2023 12:30:14 Onychomycosis of toenails [id number] B35.1 right 1st and 3rd toenailsre viewed treatment optionsret urn for total nail avulsion of the right 1st and 3rd toenailsNa ils 1 through 10 were debrided with sharp mechanical debridemen t without incident. Nails were debrided and greater than 50% length and thickness where needed. Diabetes mellitus [id number] 09 E11.9 Continue diabetic control per PCP [id number] Misael Padilla DPM [facility] [address] [facility] [address] [place] [address] 08/20/2024 15:42:50 09/27/2024 14:32:12 Diabetes mellitus 52308903 E11.9 Continue diabetic control per PCPfollow- up 3 months diabetic foot care Dystrophia unguium 65330 009 L60.3 nails debrided without incidentas needed follow-up Morbid obesity 084295776 E66.01 recommend weight loss Unable to cut own toenails 466336006 Z74.1 Onychomyco sis of toenails 409992690 B35.1 right 1st and 3rd toenailsre viewed treatment optionspat ient may return for total nail avulsion of the right 1st and 3rd toenailsde nies treatment pharmacolo gically Health Concerns Section Related Observation LastModified by Organization Detai ls LastModified Time None Recorded Concern Status LastModified by Organization Details LastModified Time None Recorded Advance Directives Directive None Recorded Payers Insurance Date Sequence Insurance Name Policy Number Policy Rodriguez Covered Member ID Rodriguez Member ID Guarantor Name 09/27/2024 2 [facility] (MEDICARE REPLACEMENT/A DVANTAGE - HMO) Karine Taylor [id number] Karine Taylor 11/11/2024 1 [facility] (MEDICARE REPLACEMENT/A DVANTAGE - PPO) [id number] Karine Taylor [id number] Karine Taylor 12/05/2023 2 [place] WHEN MEDICARE OR MEDICARE REPLACEMENT PRIMARY) Karine Taylor [id number] Karine Taylor 08/17/2024 [facility] - DOS ON OR AFTER 21 (MEDICAID REPLACEMENT - HMO) Karine Taylor [id number] Karine Taylor Notes Date Note Type Note Provider Name and Address Organization Details Recorded Time 06/06/2023 text/html . Patient is a 67-year-old female who returns the office for follow-up on diabetic foot care. Patient denies any new pedal complaints. Patient denies any wounds or infection of the foot. Patient denies any other complaints. Misael Padilla DPM [address], [place], [address], [employer] 06/06/2023 14:36:15 06/29/2023 text/html Patient returns. She is now 7 weeks and 1 day after left total hip replacement May 10. She feels she is doing very well with her hip and has had excellent relief of her hip pain with the hip replacement. Her chief complaint today is her right knee pain. She has noticed this more since her hip replacement. She has had history of total knee replacement on the left in the past. Anmol Cook MD [address], [address], [place], [address], [employer] 07/01/2023 15:06:16 09/14/2023 text/html Patient returns this time for evaluation of her right hip. Her left hip replacement that she had done in April of 2023 is doing very well. She is worried that she may have the same problem with the right hip chief complaint is pain laterally. She has to sit down a lot bothers her walking sitting climbing stairs and lying in. She has rather diffuse pain mainly in the side of the hip but also the front of her hip lower back thigh knee has history of significant arthritis in her knees. She has been limping she can only walk about 15 minutes because of these pains. She has been taking Tylenol Arthritis 1 tablet at night. She has used diclofenac the past is not using that currently. It appears she stop that right for her hip replacement Anmol Cook MD [address], [address], [place], [address], [employer] 09/15/2023 21:57:34 12/05/2023 text/html . Patient is a 68-year-old female who returns the office for diabetic foot care. Patient states overall she is doing well denies any open wounds or infection. Patient states she is concerned about the right 3rd and 1st great toenails which they are thickened and dystrophic. I did discuss options and recommended she undergo a total nail avulsion of these toenails and treatment with onycholysis mycosis medication. Patient states she would like to schedule this procedure. Patient denies any other complaints. Misael Padilla DPM [address], [facility] [address], [place], [address], [employer] 12/13/2023 16:14:42 08/20/2024 text/html Patient 69-year-old female she is diabetic. She returns for diabetic foot care. She denies any complaints. She continues to have of bilateral fishman toenails. She states that she will continue to monitor her toenail. She at this time does not want to pursue any further treatment, other than nail debridement. Patient denies any other complaints. Misael Padilla DPM [address], [address], [place], [address], [employer] 09/26/2024 09:18:54 OBGyn Episode No OBEpisode recorded.
--- OUTSIDE RECORDS SUMMARY | 2025-01-15 17:12 | XMS_ITS | Clinical Summary ---
Author Organization [facility] [address] Address [address] [place] [address] Care Team Providers Care Machine Washer Name Role Phone Ricki Taylor Primary Care Provider + Allergies Active Allergy Reactions Criticality Noted Date Comments Codeine Rash High 10/09/2018 Medications pravastatin (PRAVACHOL) 40 mg tablet Take 40 mg by mouth daily. 02/07/2017 Active losartan (COZAAR) 50 mg tablet Take 50 mg by mouth daily. 02/07/2017 Active naproxen (NAPROSYN,ALEVE) 500 mg tablet Take 500 mg by mouth 2 (two) times a day. 03/05/2017 Active JANUVIA 100 mg tabletIndication s:type 2 diabetes mellitus Take 100 mg by mouth daily. 3 03/06/2017 Active multivit with min-folic acid 200 mcg tablet,chewable Take by mouth. Active aspirin 81 mg enteric coated tablet Take 81 mg by mouth daily Active Active Problems Problem Noted Date Diagnosed Date Family history of early CAD 03/23/2017 Surgical History Surgery Date Site/Laterality Comments REPLACEMENT TOTAL KNEE Medical History Medical History Date Comments Diabetes mellitus (HCC) Hypertension Family History Medical History Relation Name Comments Pancreatic cancer Mother Relation Name Status Comments Father (Age 70) Mother (Age 67) Social History Tobacco Use Types Packs/Day Years Used Date Smoking Tobacco: Never Smokeless Tobacco: Never Alcohol Use Standard Drinks/Week Comments Yes 0 (1 standard drink = 0.6 oz pur e alcohol) rarely Personal Safety Answer Date Recorded Getting School Help Needed Not on file 09/29 Comments No Sex and Gender Information Value Date Recorded Sex Assigned at Not on file Legal Sex Female 12:14 PM CDT Gender Identity Not on file Sexual Orientation Not on file Obstetrics History Last Filed Vital Signs Vital Sign Reading Time Taken Comments Blood Pressure 154/81 12/19/2018 12:50 PM CDT Pulse 72 12/19/2018 12:50 PM CDT Temperature 36.9 C (98.4 F) 05/18/2014 5:17 PM CDT Respiratory Rate 18 12/19/2018 12:50 PM CDT Oxygen Saturation 100% 12/19/2018 12:50 PM CDT Inhaled Oxygen Concentration - - Weight 108.9 kg (240 lb) 12/19/2018 12:50 PM CDT Height 172.7 cm (5' 8) 12/19/2018 12:50 PM CDT Body Mass Index 36.49 12/19/2018 12:50 PM CDT Plan of Treatment Not on file Insurance [facility] MEDICARE [facility] Address: [facility] [address] [place] [address] Care Teams Machine Washer Relationship Specialty Start Date End Date Ricki Taylor PA [address] [place] [address] PCP - General Content Editor 03/23/17
--- OUTSIDE RECORDS SUMMARY | 2025-01-15 17:12 | XMS_ITS | Referral Summary ---
Author Organization [facility] [address] Address [address] [place] [address] Care Team Providers Care Informatics Coordinator Name Role Phone Ricki Taylor Primary Care [...] Date Family history of early CAD 03/23/2017 Social History Tobacco Use Types Packs/Day Years [...] on file Sexual Orientation Not on file Last Filed Vital Signs Vital Sign Reading [...] Plan of Treatment Not on file Insurance [facility] MEDICARE ADVANTAGE Care Teams Informatics Coordinator Relationship Specialty Start Date End Date Ricki Taylor PA [address] [place] [id number] PCP - General Line Maintainer Section 03/23/17
--- OUTSIDE RECORDS SUMMARY | 2025-01-15 17:12 | XMS_ITS | Continuity of Care Document ---
Author Organization [facility] Address [address] [place] [address] [place] [address] Phone Care Team Providers Care Online Communications Manager Name Role Phone Yoni Pearson DO Unavailable Unavailable Advance Directives Directive Yes / No Effective Date File Name No Information Encounters Encounter Description Practice Location Reason(s) For Visit Diagnoses Date Provider Providers Copied on Encounter [facility], [address], [place], [place], [id number], [place] tel:[phone] [facility] [place] No Information Michel Hong. [address] [facility], [place], [address], [place]. tel: [phone] Family History Family Member Type Diagnosis Age At Onset No Information Payers Payer name Insurance type Covered democrat ID Authoriza tion(s) Medicaid [facility] [id number] Social History Type Description Quantity Date Captured Comments Sex Female Smoking Status No Information Chief Complaint And Reason For Visit No Information Reason For Referral Reason For Referral No Information History Of Present Illness Encounter Date Complaint History Of Prese nt Illness No Information Functional Status Date Functional Assessmen t No Information Instructions Date Instruction Additional Infor mation No Information Assessments Type Assessment Date No Information Patient Care Teams Name Effective Dates (start - stop) Status Members No Information
--- OUTSIDE RECORDS SUMMARY | 2025-01-15 17:12 | XMS_ITS | Data Portability ---
[facility] Address [address] [place] [address] Assessment No assessment recorded. Plan of Treatment Reminders Order Date Submit Date Provider Last Modified By Organization Details Last Modified Time Details Appointments None recorded. Lab microalbu min, urine 2021 022 NINA In-Office Order, Internal Use Only DO Not Attach Compendium DO Not Attach Compendium, Do Not Delete/merge, [id number] 17:46:13 HbA1c (hemoglob in A1c), blood 2020 021 NINA In-Office Order, Internal Use Only DO Not Attach Compendium DO Not Attach Compendium, Do Not Delete/merge, 15:40:12 microalbu min, urine 2020 021 NINA In-Office Order, Internal Use Only DO Not Attach Compendium DO Not Attach Compendium, Do Not Delete/merge, 15:41:53 Referral cardiolog ist referral - Her twin just had a stress test . her son had a defibrill ator . She would like a stress test redone . had one in 2019 . Thank you 2021 rema Puckett MD, [address] [facility] [address], [place], [address], 14:06:52 gastroent erologist referral 2021 luisa Martinez MD, [address] [facility] [address], [address], [place], [address], 3 10:41:42 Procedures None recorded. Surgeries None recorded. Imaging None recorded. Medication Orders cyanocoba nguyễn (vit B-12) 1,000 mcg tablet 2020 [id number], [address], [place], [id number], 3 14:10:20 OneTouch Verio test strips 2020 [facility] #64206, [address], [place], [id number], 3 14:11:19 Pennsaid 20 mg/gram/a ctuation (2 %) topical soln in metered-d ose pump 2020 [facility], [address], [place], [id number], 3 14:11:25 naproxen 500 mg tablet 2020 021 [facility] #22691, [address], [place], [id number], 3 14:11:06 Pennsaid 20 mg/gram/a ctuation (2 %) topical soln in metered-d ose pump 2020 021 [facility] #95626, [address], [place], [id number], 3 14:11:25 prednison e 20 mg tablet 2020 021 [facility] #44601, [address], [place], [id number], 3 14:11:40 Januvia 100 mg tablet 2019 020 [facility] #14430, [address], [place], [id number], 12:04:41 Patient TargetsNo targets recorded. Patient Instructions Encounter Date Encounter Id Patient Instructions Last Modified By Organization Details Last Modified Time 03/12/2021 [id number] she will have ey e doctor send me a report of recent exam [email or web address] Not available 03/13/2021 16:23:35 Reason for Referral Insights Manager Referral for Sc reening for cardiovascular system disease Her twin just had a stress test . her son had a defibrillator . She would like a stress test redone . had one in 2019 . Thank you Referring Physician: [facility], Encounter Date: 03/07/2022 Channel Marketing Coordinator Referral for Screening for malignant neoplasm of colon Referring Physician: [facility], Encounter Date: 03/07/2022 Results Created Date Observation Date Name Description Value Unit Range Abnormal Flag Note LastModifiedBy Organization Detail LastModifiedTime 03/12/20 21 03/12/2021 micro album in, urine Microalbumin Normal Not Available In-Of fice Order Internal Use Only DO Not Attach Compendium DO Not Attach Compendium, Do Not Delete/merge, [id number] 03/12/2021 15:31:23 03/12/20 21 03/12/2021 HbA1c (hemo globi n A1c), blood HbA1c 5.6% Not Available In-Office Order Internal Use Only DO Not Attach Compendium DO Not Attach Compendium, Do Not Delete/merge, [id number] 03/12/2021 15:31:21 10/30/19 21 10/29/2020 MAMMO , scree fredy, bilat eral No observ ation record ed. [email or web address] Not Available 11/20 17:20:00 11/30/19 22 11/15/2021 eye exam* No observ ation record ed. [email or web address] Not Available 09/2021 14:27:56 Result Notes None recorded. Problems Name Problem SNOMED Code Status Onset Date Resolution Date Notes Provider Name and Address Organization Details Recorded Time Debora elizondo 629478880 Active 2017 cannot walk more than 40 steps without stopping Not Available [facility] 2 05:42:50 Pain in right thumb [id number] 10667 Active 2017 Not Available [facility] 2 05:42:50 Screening for cardiovas cular system disease Active 2017 Not Available [facility] 2 05:42:50 Physical examinati on 0615400 Active 2018 Not Available [facility] 2 05:42:50 Arthritis of left hip 44564528001 03270 Active 2019 Not Available [facility] 2 05:42:50 Serum vitamin B12 borderlin e low 844443499 Active 2020 Not Available [facility] 2 05:42:50 Acute sinusitis 15487726 Active 2021 Not Available [facility] 2 05:42:50 Screening for malignant neoplasm of colon Active 2021 Ricki Taylor PA-C Attn: [place], [address] , [place] - [place] 2 17:36:59 Knee pain Active Not Available [facility] 2 05:42:50 Vitamin D deficienc y 65890783 Active Not Available [facility] 2 05:42:50 Essential hypertens ion 44768897 Active Not Available [facility] 2 05:42:50 Low back pain 975607868 Active Not Available [facility] 2 05:42:50 Type 2 diabetes mellitus 04600867 Active Not Available [facility] 2 05:42:50 Obesity 278150537 Active Not Available [facility] 2 05:42:50 Headache 30438167 Active Not Available [facility] 2 05:42:50 Hyperlipi demia 28555753 Active 2016 Not Available [facility] 2 05:42:50 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 Procedures Surgical History Date Name Laterality Status Provider Name and Address Organization Details Recorded Time 10/30/19 21 Date of Last Mammogram completed Evy Huff MA [facility] 06/11/2021 15:10:02 05/31/20 16 Most Recent Mammogram completed Evy Huff MA [facility] 09/08/2016 10:59:31 07/31/18 80 Appendectomy completed Evy Huff MA [facility] 09/08/2016 10:58:12 Knee Surgery completed Kierra Quiles MA [facility] 07/17/2014 15:57:36 Imaging Results None recorded. Procedure Notes None recorded. Medical Equipment None Reported. Allergies Allergen ID Allergen Name Allergen Category Reaction Reaction Severity Criticality Documentation Date Start Date Code Code System Note Provider Name and Address Organization Details Recorded Time 63876 codeine medicatio n rash severe Not available 09/08/2016 2670 RxNorm Evy Huff MA null, [facility] 7 10:57:28 Medications Name Sig Start Date Stop Date Status Note LastModified by Organization Details LastModified Time blood glucose test strips use one strip to test blood sugar twice daily 08/29 completed Not Available Not Available Not Available pharmacist choice ultra thin lancet s 31g [facility] 08/29 completed Not Available Not Available Not Available simple diagnostics lancing device [facility] 08/29 completed Not Available Not Available Not Available easy comfort lancets 30g/pull top misc active Not Available Not Available Not Available alcohol pads 70 % pads active Not Available Not Available Not Available easy mini eject lancing device misc active Not Available Not Available Not Available glucometer test once daily 05/30 completed Not Available Not Available Not Available multivitami n tablet Take 1 tablet every day by oral route. 07/30 completed Not Available Not Available Not Available losartan 50 mg tablet TAKE 1 TABLET BY MOUTH EVERY DAY IN THE MORNING active Not Available Not Available No t Available cyclobenzap rine 10 mg tablet TAKE 1 TABLET BY MOUTH EVERY DAY AT BEDTIME NEEDED FOR MUSCLE SPASM active Not Available Not Available No t Available prednisone 10 mg tablet 08/29 completed Not Available Not Available Not Available ammonium lactate 12 % lotion APPLY TOPICALLY TO FEET DAILY NEEDED 08/29 completed Not Available Not Available Not Available azithromyci n 250 mg tablet TAKE 2 TABLETS BY MOUTH FOR 1 DAY THEN 1 TABLET EVERY DAY FOR 4 DAYS 08/29 completed Not Available Not Available Not Available lidocaine 5 % topical cream active Not Available Not Available Not Available pravastatin 40 mg tablet TAKE 1 TABLET BY MOUTH EVERY DAY AT 5 PM active Not Available Not Available No t Available ibuprofen 800 mg tablet TAKE 1 TABLET BY MOUTH THREE TIMES DAILY NEEDED FOR PAIN 08/29 completed Not Available Not Available Not Available fluconazole 150 mg tablet 1 tablet every 3rd day prn only if yeast vaginitis occurs from antibioti cs 08/29 completed Not Available Not Available Not Available sumatriptan 100 mg tablet TAKE 1 TABLET BY MOUTH AT ONSET OF HEADACHE MAY REPEAT IN 2 HOURS 07/30 completed Not Available Not Available Not Available meloxicam 15 mg tablet 08/29 completed Not Available Not Available Not Available prednisone 20 mg tablet Take 2 tablets twice a day by oral route as directed for 2 days. 08/29 completed Not Available Not Available Not Available cyanocobala min (vit B-12) 1,000 mcg tablet Take 1 tablet twice a day by oral route with meals for 30 days. 08/29 completed Not Available Not Available Not Available tramadol 50 mg tablet TAKE 1 TABLET BY MOUTH EVERY 6 HOURS active Not Available Not Available No t Available lidocaine-p rilocaine 2.5 %-2.5 % topical cream Apply 2 grams up to 4 times daily to affected area(s). 05/30 completed Not Available Not Available Not Available Kenalog 40 mg/mL suspension for injection Take 40 mg by injection route. 05/30 completed Not Available Not Available Not Available prednisone 10 mg tablets in a dose pack FOLLOW PACKAGE DIRECTION S 08/29 completed Not Available Not Available Not Available misoprostol 200 mcg tablet TAKE 1 TABLET BY MOUTH FOUR TIMES DAILY active Not Available Not Available No t Available diclofenac sodium 75 mg tablet,soila yed release TAKE 1 TABLET BY MOUTH TWICE DAILY active Not Available Not Available No t Available methylpredn isolone 4 mg tablets in a dose pack 08/29 completed Not Available Not Available Not Available albuterol sulfate HFA 90 mcg/actuati on aerosol inhaler INHALE 2 PUFFS BY MOUTH FOUR TIMES DAILY NEEDED FOR SHORTNESS OF BREATH OR WHEEZING 08/29 completed Not Available Not Available Not Available Vitamin D2 1,250 mcg (50,000 unit) capsule Take 1 capsule every week by oral route with meals for 30 days. 08/29 completed Not Available Not Available Not Available ketoconazol e 2 % topical cream APPLY TO THE AFFECTED AREA TOPCAILLY ONCE DAILY active Not Available Not Available No t Available naproxen 500 mg tablet TAKE 1 TABLET BY MOUTH TWICE DAILY 08/29 completed Not Available Not Available Not Available amoxicillin 875 mg-potassiu m clavulanate 125 mg tablet TAKE 1 TABLET BY MOUTH EVERY 12 HOURS FOR 10 DAYS 08/29 completed Not Available Not Available Not Available One Touch test strips Use to test every day. 07/30 completed Not Available Not Available Not Available cyclobenzap rine 5 mg tablet 08/29 completed Not Available Not Available Not Available Alcohol Prep Pads USE TWICE DAILY 08/29 completed Not Available Not Available Not Available omega-3 acid ethyl esters 1 gram capsule take 2 capsules by mouth twice daily active Not Available Not Available No t Available OneTouch Ultra2 Meter kit USE DIRECTED TO TEST BLOOD SUGAR 07/30 completed Not Available Not Available Not Available Oysco 500/D 500 mg-5 mcg (200 unit) tablet TAKE 1 TABLET BY MOUTH TWICE DAILY 08/29 completed Not Available Not Available Not Available Januvia 100 mg tablet TAKE 1 TABLET BY MOUTH EVERY DAY active Not Available Not Available No t Available diclofenac 1 % topical gel APPLY 2 GRAMS TO RIGHT FOOT AND ANKLE EVERY DAY active Not Available Not Available No t Available diclofenac 1.5 % topical drops APPLY 40 DROPS (1.2ML) 4 TIMES DAILY TO EACH AFFECTED KNEE. active Not Available Not Available No t Available OneTouch Delica Lancets 33 gauge TEST TWICE DAILY 07/30 completed Not Available Not Available Not Available sodium,pota ssium,mag sulfates 17.5 gram-3.13 gram-1.6 gram oral soln MIX AND DRINK DIRECTED active Not Available Not Available No t Available niacin (inositol niacinate) 500 mg tablet Take one tab daily 2022 active Not Available Not Available Not Avai lable OneTouch Verio test strips Take 1 strip twice a day by miscell. route for 30 days. 08/29 completed Not Available Not Available Not Available OneTouch Verio High Control solution 08/29 completed Not Available Not Available Not Available lidocaine 5 % topical ointment Apply 2 grams up to 4 times daily to affected area(s active Not Available Not Available No t Available calcium 600 mg (as carbonate)- vitamin D3 20 mcg (800 unit) tablet Take 1 tablet twice a day by oral route for 30 days. 07/30 completed Not Available Not Available Not Available lancets 23 gauge 07/30 completed Not Available Not Available Not Available Pennsaid 20 mg/gram/act uation (2 %) topical soln in metered-dos e pump APPLY 2 PUMPS (40 MG) TO THE AFFECTED KNEE(S) BY TOPICAL ROUTE 2 TIMES PER DAY 08/29 completed Not Available Not Available Not Available Niacin (niacinamid e) 500 mg tablet Take one tablet daily 09/05 completed Not Available Not Available Not Available OneTouch Ultra Blue Test Strip USE TO TEST EVERY DAY 07/30 completed Not Available Not Available Not Available OneTouch Verio Reflect Meter 08/29 completed Not Available Not Available Not Available Vitals Date Recorded Body height Body mass index (BMI) Body weight Provider Name and Address Organization Details Last Updated DateTime 08/29/2022 169.55 cm 38.7 kg/m2 190998.13 g Kathleen Olivas [place] [facility] 08/29/2022 14:07:59 Date Recorded Body height Body mass index (BMI) Body weight Oxygen saturation Oxygen saturation in Arterial blood by Pulse oximetry Heart rate Systolic blood pressure Diastolic blood pressure Provider Name and Address Organization Details Last Updated DateTime 169.55 cm 38.8 kg/m2 460962 g 95 % 95 % 87 /min 122 mm[Hg] 70 mm[Hg] Judith Rojas MA [place] [facility] 2 17:17:52 Date Recorded Body height Body mass index (BMI) Body weight Oxygen saturation Oxygen saturation in Arterial blood by Pulse oximetry Heart rate Systolic blood pressure Diastolic blood pressure Provider Name and Address Organization Details Last Updated DateTime 1 169.55 cm 41.7 kg/m2 881058. 82 g 96 % 96 % 98 /min 128 mm[Hg] 78 mm[Hg] Ellie Dumont OTONIEL [place] [facility] 1 15:26:11 Date Recorded Body height Provider Name an d Address Organization Details Last Updated DateTime 06/04/2020 169.545 cm Ellie Canela [place] [facility] 06/04/2020 11:47:59 Date Recorded Body height Body mass index (BMI) Body weight Oxygen saturation Oxygen saturation in Arterial blood by Pulse oximetry Heart rate Body temperature Systolic blood pressure Diastolic blood pressure Provider Name and Address Organization Details Last Updated DateTime 1 169.55 cm 41.3 kg/m2 426584. 2 g 98 % 98 % 68 /min 97.5 [degF] 120 mm[Hg] 74 mm[Hg] Evy Huff [place] [facility] 1 15:08:51 Social History Question Answer Notes LastModified by Organizat ion Details LastModified Time Tobacco Smoking Status Never Smoker Not Available [facility] 06/02/2020 03:39:30 Are You Blind Or Do You Have Difficulty Seeing? No [id number] Information not available 06/02/2020 What Is Your Level Of Caffeine Consumption? None [id number] Information not available 06/02/2020 Are You A Caregiver? Yes Senior Plus [id number] Information not available 06/02/2020 How Much Tobacco Do You Chew? None [id number] Information not available 06/02/2020 Are You Deaf Or Do You Have Serious Difficulty Hearing? No [id number] Information not available 06/02/2020 What Type Of Diet Are You Following? REGULAR [id number] Information not available 06/02/2020 Do You Have A Directive To Physicians? No [id number] Information not available 06/02/2020 Education 12 Information no t available 07/17/2014 Are There Any Guns Present In Your Home? No [id number] Information not available 06/02/2020 Hard Of Hearing Or Deaf In One Or Both Ears? No Information not available 07/17/2014 Legally Blind In One Or Both Eyes? No Information not available 07/17/2014 Marital Status Single Informatio n not available 07/17/2014 Do You Have A Medical Power Of Disk Recordist? No [id number] Information not available 06/02/2020 What Was The Date Of Your Most Recent Tobacco Screening? 08/29/2022 Information not available 08/29/2022 How Many Children Do You Have? 4 Information not available 06/11/2021 Do You Have An Out Of Hospital DNR? No [id number] Information not available 06/02/2020 Performs Monthly Self-breast Exam? Yes Information not available 07/17/2014 What Is Your Relationship Status? Single Information not available 06/11/2021 Do You Use Your Seat Belt Or Car Seat Routinely? Yes Information not available 06/11/2021 Seat Belts Used Routinely Yes Information not available 07/17/2014 Are You Sexually Active? No Information not available 06/11/2021 Smoke Alarm In Home Yes Information not available 07/17/2014 Do You Have Smoke And Carbon Monoxide Detectors In Your Home? Yes Information not available 06/11/2021 Are You Passively Exposed To Smoke? Yes Information not available 06/11/2021 How Much Tobacco Do You Smoke? No [id number] Information not available 06/02/2020 General Stress Level Medium Information not available 07/17/2014 Do You Use Sunscreen Routinely? No [id number] Information not available 06/02/2020 Has Tobacco Cessation Counseling Been Provided? No Information not available 06/11/2021 On What Date Was Tobacco Cessation Counseling Provided? 08/29/2022 Information not available 08/29/2022 Do You Have Difficulty Walking Or Climbing Stairs? Yes [id number] Information not available 06/02/2020 Sex: Unknown Functional Status Question Answer Note LastModified by Organizat ion Details LastModified Time Do you use any illicit or recreational drugs? No Information not available 06/11/2021 Do you or have you ever used any other forms of tobacco or nicotine? No Information not available 06/11/2021 What is your level of alcohol consumption? None [id number] Information not available 06/02/2020 Do you have transportation difficulties? No [id number] Information not available 06/02/2020 Do you have difficulty doing errands alone? No [id number] Information not available 06/02/2020 Do you have difficulty dressing or bathing? Yes [id number] Information not available 06/02/2020 What is your exercise level? Occasional [id number] Information not available 06/02/2020 Mental Status Question Answer Note LastModified by Organization D etails LastModified Time Do you have difficulty concentrating, remembering or making decisions? Yes [id number] Information no t available 06/02/2020 Family History Relationship Description Onset Age of this Age Resolved Age Notes LastModified by Organization Details LastModified Time Mother Malignant tumor of pancreas 67 Not available 2013 15:57:36 Sister Malignant tumor of breast Not available 2013 15:57:36 Sister Diabetes mellitus Not available 2013 15:57:36 Sister Heart disease Not available 2013 15:57:36 Sister Hypercholest erolemia Not available 2013 15:57:36 Sister Hypertensive disorder Not available 2013 15:57:36 Medical History Condition Response Coronary Artery Disease N Other N High Blood Pressure Y Atrial Fibrillation N Kidney or Bladder Problems N Thyroid Problems N GI Problems N Depression N COPD N Blood Clots N Skin Problems N Anemia N Heart Attack ([place]) N Anxiety Disorder N Diabetes Y Muscle, Joint, or Bone Problems N Seizures/Epilepsy N Acid Reflux (GERD) N Cancer N Stroke N Asthma N Allergies N High Cholesterol Y Hepatitis N Liver Disease N Headaches Y Heart Failure N Osteoporosis N Gynecological History Statement/Question Response Date of Last Mammogram 10/29/2020 STIs/STDs N HPV Vaccine N Current Control Method Menopause Most Recent Mammogram 05/31/2016 Age at First Child 17 Sexually Active? Y Menses Monthly N Date of Last Pap Smear Sexual Problems? N LMP Unknown Obstetrics History GPAL:G 4 P 4 0 0 4 Type Value Multiple Births 0 Full Term 4 Induced 0 Spontaneous 0 Premature 0 Living 4 Ectopics 0 Total 4 Past Encounters Encounter ID Performer Location Encounter Start Date Encounter Closed Date Diagnosis/Indication Diagnosis SNOMED-CT Code Diagnosis ICD10 Code Diagnosis Note [id number] Rojelio Verdin MD [facility] (Adult Med) [address] [place] [address] [id number] 0 07/17/2014 14:47:36 07/17/2014 18:11:44 Essential hypertension 76545920 Low back pain 918734049 Type 2 parker betes mellitus 37470504 Obesity 519019110 [id number] [facility] [address] [place] [address] [id number] 05/26/2015 10:18:04 05/26/2015 17:55:05 Essential hypertension 99726807 I10 Low back pain 064789176 M54.5 Obesity 470667149 E66.9 Type 2 parker betes mellitus 40219670 E11.9 Knee pain 87658330 M25.5 69 Screening colonoscopy 44 7633345 Z12.11 Vitamin D deficiency 347 64895 E55.9 [id number] AM[facility] Carrillo (Adult Med) [address] [place] [address] [id number] 0 09/22/2015 11:37:06 09/22/2015 12:27:36 Vitamin D deficiency 66994351 E55.9 Type 2 parker betes mellitus 16464373 E11.9 Obesity 957520454 E66.9 Low back pain 707958961 M54.5 Knee pain 70054566 M25.[address] Basurto gave her steroid shot right knee in May 2015 Essential hypertension 79109196 I10 [id number] MD Jose Alberto Doshi (Adult Med) [address] [place] [address] [id number] 0 01/14/2016 14:21:16 01/14/2016 15:45:41 Headache 16095625 R51 Type 2 parker betes mellitus 65810500 E11.9 Vitamin D deficiency 347 15324 E55.9 Low back pain 517902438 M54.5 [id number] [facility] [address] [place] [address] [id number] 0 09/02/2016 14:54:03 09/02/2016 16:27:24 Low back pain 402857572 M54.5 Knee pain 82862256 M25.[address] Basurto gave her steroid shot right knee in May 2015 Vitamin D deficiency 347 56392 E55.9 Obesity 459785132 E66.9 Type 2 parker betes mellitus 12014960 E11.9 Essential hypertension 32063448 I10 [id number] MD Jose Alberto Engel (SUPER[employer]OR [employer] RO[employer]) [address] [place] [address] [id number] 0 09/08/2016 10:27:20 09/08/2016 16:04:33 Gynecologic examination 87862290 Z01.419 Screening mammography 24 531018 Z12.31 Screening for osteoporosis 811534410 Z13.278 [id number] MD Jose Alberto Doshi (Adult Med) [address] [place] [address] [id number] 11/25/2016 09:23:36 11/25/2016 13:21:04 Type 2 diabetes mellitus 40560571 E11.9 Low back pain 164878653 M54.5 Knee pain 11760932 M25.[address] Basurto gave her steroid shot right knee in May 2015 Vitamin D deficiency 347 12762 E55.9 Obesity 555242489 E66.9 Essential hypertension 75163157 I10 Hyperlipidemia 46465283 E78.5 [id number] MD Jose Alberto Doshi (Adult Med) [address] [place] [address] [id number] 0 05/30/2017 12:25:23 05/30/2017 16:49:54 Type 2 diabetes mellitus 40977201 E11.9 Low back pain 572812232 M54.5 Hyperlipidemia 06505764 E78.5 Vitamin D deficiency 347 22630 E55.9 Obesity 963718774 E66.9 Essential hypertension 14862701 I10 Osteochond ivanna of foot 592043513 D16.31 Knee pain 41751109 M25.[address] Basurto gave her steroid shot right knee in May 2015 [id number] MD Jose Alberto Doshi (Adult Med) [address] [place] [address] [id number] 0 08/28/2017 10:43:27 08/28/2017 13:47:11 Type 2 diabetes mellitus 45168790 E11.9 Essential hypertension 26314526 I10 Obesity 870134061 E66.9 Vitamin D deficiency 347 54960 E55.9 Knee pain 54426229 M25.[address] Basurto gave her steroid shot right knee in May 2015 Low back pain 205571087 M54.5 Hyperlipidemia 47613658 E78.5 [id number] MD Jose Alberto Doshi (Adult Med) [address] [place] [address] [id number] 0 12/28/2017 09:43:37 12/28/2017 13:25:37 Type 2 diabetes mellitus 56585790 E11.9 Essential hypertension 76672425 I10 Obesity 279462916 E66.9 Vitamin D deficiency 347 00741 E55.9 Hyperlipidemia 00005638 E78.5 Low back pain 628459982 M54.5 Knee pain 00540632 M25.[address] Basurto gave her steroid shot right knee in May 2015 Osteoarthritis 176841895 M19.90 total knee replacemen t left knee in the past , right knee is weak [id number] [facility] [address] [place] [address] [phone] 0 07/30/2018 12:10:14 07/30/2018 16:52:41 Low back pain [id number] M54.5 Pain in right thumb 1076 [id number] 325922 M79.644 Knee pain 28693887 M25.[address] Basurto gave her steroid shot right knee in May 2015 Screening for cardiovascular system disease 358576328 Z13.6 Hyperlipidemia 76651711 E78.5 Vitamin D deficiency 347 57545 E55.9 Obesity 361267395 E66.9 Type 2 parker betes mellitus 90567055 E11.9 Essential hypertension 87074037 I10 [id number] MD Jose Alberto Doshi (Adult Med) [address] [place] [address] [phone] 0 10/29/2018 14:37:58 10/30/2018 12:38:24 Type 2 diabetes mellitus 43317610 E11.9 Obesity 059757307 E66.9 Vitamin D deficiency 347 12271 E55.9 Hyperlipidemia 82717363 E78.5 [id number] MD Jose Alberto Doshi (Adult Med) [address] [place] [address] [phone] 0 05/27/2019 10:48:19 05/28/2019 08:44:03 Low back pain 003236506 M54.5 Type 2 parker betes mellitus 29522863 E11.9 Osteoarthritis 943433125 M19.90 total knee replacemen t left knee in the past , right knee is weak Hyperlipidemia 00420649 E78.5 Knee pain 21234249 M25.[address] Basurto gave her steroid shot right knee in May 2015 Vitamin D deficiency 347 21080 E55.9 Obesity 144879223 E66.9 Essential hypertension 42249523 I10 [id number] MD Jose Alberto Doshi (Adult Med) [address] [place] [address] [phone] 0 02/25/2020 09:47:37 02/25/2020 12:56:18 Low back pain 563940361 M54.5 Type 2 parker betes mellitus 83863115 E11.9 Vitamin D deficiency 347 76273 E55.9 Essential hypertension 30904178 I10 Hyperlipidemia 08272444 E78.5 Osteoarthritis 453250073 M19.90 total knee replacemen t left knee in the past , right knee is weak [id number] [facility] [address] [place] [address] [phone] 0 03/25/2020 08:02:28 03/25/2020 12:19:48 Type 2 diabetes mellitus 35418253 E11.9 Essential hypertension 66718536 I10 Hyperlipidemia 60420294 E78.5 Low back pain 972101502 M54.5 Osteoarthritis 672471018 M19.90 total knee replacemen t left knee in the past , right knee is weak Vitamin D deficiency 347 37780 E55.9 [id number] MD Jose Alberto Doshi (Adult Med) [address] [place] [address] [phone] 0 06/04/2020 08:08:52 06/04/2020 13:13:32 Osteoarthritis 814050181 M19.90 total knee replacemen t left knee in the past , right knee is weak Type 2 parker betes mellitus 23424300 E11.9 Vitamin D deficiency 347 33833 E55.9 Arthritis of left hip 10 64031314 108394 M13.852 Essential hypertension 62598559 I10 Hyperlipidemia 43470102 E78.5 Knee pain 55334924 M25.[address] Basurto gave her steroid shot right knee in May 2015 Low back pain 003810967 M54.5 [id number] AMNA Carrillo (Adult Med) [address] [place] [address] [phone] 0 03/12/2021 15:14:12 03/12/2021 16:09:10 Type 2 diabetes mellitus 80485906 E11.9 Vitamin D deficiency 347 57779 E55.9 Low back pain 277406611 M54.5 Obesity 050146974 E66.9 Hyperlipidemia 69253967 E78.5 Essential hypertension 42932054 I10 Osteoarthritis 835150695 M19.90 total knee replacemen t left knee in the past , right knee is weak [id number] [facility] [address] [place] [address] [phone] 0 06/11/2021 14:57:14 06/14/2021 09:42:57 Hyperlipidemia 53094507 E78.5 Low back pain 661441647 M54.50 Obesity 791038655 E66.9 Osteoarthritis 060099074 M19.90 total knee replacemen t left knee in the past , right knee is weak Type 2 parker betes mellitus 74231866 E11.9 Vitamin D deficiency 347 05516 E55.9 Serum azael min B12 borderline low 642344307 R79.89 Arthritis of left hip 10 79804856 698182 M13.852 Essential hypertension 81473629 I10 [id number] [facility] [address] [place] [address] [phone] 0 03/07/2022 17:03:16 03/08/2022 11:35:15 Screening for cardiovascular system disease 549665590 Z13.6 Vitamin D deficiency 347 50267 E55.9 Type 2 parker betes mellitus 45151715 E11.9 Serum azael min B12 borderline low 917854159 R79.89 Osteoarthritis 363003319 M19.90 total knee replacemen t left knee in the past , right knee is weak Low back pain 204135550 M54.50 Hyperlipidemia 85167038 E78.5 Essential hypertension 07555927 I10 Arthritis of left hip 10 70187553 589552 M13.852 Screening for malignant neoplasm of colon 026929870 Z12.11 Osteochond ivanna of foot 084429959 D16.31 [id number] Katie Seogvia MD [facility] (Adult Med) [address] [place] [address] [phone] 0 08/29/2022 14:07:06 08/30/2022 15:06:40 Arthritis of left hip 8043646346 189932 M13.852 Cont with ortho. Pt will schedule appt for scooter Low back pain 202581750 M54.50 Cont with ortho. Health Concerns Section Related Observation LastModified by Organization Detai ls LastModified Time None Recorded Concern Status LastModified by Organization Details LastModified Time None Recorded Advance Directives Directive None Recorded Payers Insurance Date Sequence Insurance Name Policy Number Policy Rodriguez Covered Member ID Rodriguez Member ID Guarantor Name 11/25/2022 1 [facility] (MEDICARE REPLACEMENT/AD VANTAGE - HMO) [id number] Karine Taylor [id number] Karine Taylor 10/14/2022 2 [facility] (MEDICAID HMO) Karine Taylor [id number] Karine Taylor 10/14/2022 2 [facility] PRIOR TO 01/28/2021 (MEDICAID REPLACEMENT - HMO) Karine Taylor [id number] Karine Taylor 10/14/2022 2 [place] WHEN [place]IC[place] REPLACEMENT PRIMARY) Karine Taylor [id number] Karine Taylor 10/14/2022 [place] [facility] Karine Taylor [id number] Karine Taylor 10/14/2022 3 [place]IC[place] REPLACEMENT PRIMARY) Karine Taylor [id number] Karine Taylor 10/14/2022 1 [place] Karine Taylor [id number] Karine Taylor 10/14/2022 1 [facility] ON OR AFTER 01/28/21 (MEDICAID REPLACEMENT - HMO) Karine Taylor [id number] Karine Taylor 10/14/2022 1 [facility] (MEDICARE REPLACEMENT/AD VANTAGE - PPO) [id number] Karine Taylor [id number] Karine Taylor Notes Date Note Type Note Provider Name and Address Organization Details Recorded Time 06/04/2020 text/html does not like power chair , too big for her car for one thing ... Ricki Taylor PA-C Attn: [address] [place], [address], [facility] 06/04/2020 13:48:30 03/12/2021 text/html no changes Ricki Taylor PA-C Attn: [address] [place], [address], [facility] 03/13/2021 16:23:46 06/11/2021 text/html no changes Ricki Taylor PA-C Attn: [address] [place], [address], [facility] 06/12/2021 21:19:58 03/07/2022 text/html twin had a stres s test . she had a stress test in 2018 Ricki Taylor PA-C Attn: [address] [place], [address], [facility] 03/12/2022 10:32:01 08/29/2022 text/html Telephone visit due to weather precautions. She has pain in her lower back and left thigh. She is currently seeing an adapted physical education specialist for these problems. She wants a motorized scooter Katie Segovia MD Attn: [address] [place], [address], [facility] 08/29/2022 14:43:01 OBGyn Episode No OBEpisode recorded.
== END 2025-01-15 15:20 | disposition home or self-care (01) ==
LOC: ANHIMG 15:21
PROVIDERS: PCP Internal Medicine; Visit Provider Internal Medicine
DX: Z12.31 Encounter for screening mammogram for malignant neoplasm of breast (principal)
CPT/HCPCS: 77063; 77067

== ENCOUNTER 2025-01-15 15:45 | Emergency (ER) | payer MEDICARE, MEDICAID, SELFPAY ==
[2025-01-15 16:06] VITALS: BP 136/64; PULSE 80; RESP 18; TEMP 36.1; O2SAT 98
--- NOTE | 2025-01-15 16:20 | PC.NURSE ---
Pt states unable to wait d/t needing to catch the bus. Pt leaves in NAD.
--- OUTSIDE RECORDS SUMMARY | 2025-01-15 17:27 | XMS_ITS | Clinical Summary ---
Author Organization [facility] Address [address] [place] [address] Care Team Providers Care Depot Agent Name Role Phone Unavailable Primary Care Provider Unavailabl e Social History Tobacco Use Types Packs/Day Years Used Date Smoking Tobacco: Never Assessed Comments Unknown Sex and Gender Information Value Date Recorded Sex Assigned at Not on file Legal Sex Female 4:08 PM CDT Gender Identity Not on file Sexual Orientation Not on file Plan of Treatment Health Maintenance Due Date Last Done Comments Colorectal Cancer Screening Colonoscopy (10 Years) 1953 Hepatitis C 1971 DTaP, Tdap and Td Vaccines ( 1 - Tdap) 1972 Mammogram Screening 1993 Pneumococcal Vaccine: 50+ Ye ars (1 of 1 - PCV) 2003 Zoster Vaccines (1 of 2) 2003 Dexa Scan (General) 2018 COVID-19 Vaccine (2023-2 5 season) 2024 RSV Immunization or 60+ Years (1 - 1-dose 75+ series) 2028 Meningococcal B Vaccine Aged Out No l onger eligible based on patient's age to complete this topic Meningococcal Vaccine Aged Out No jenny teresa eligible based on patient's age to complete this topic RSV Immunizations Under 20 Months Aged Out No longer eligible based on patient's age to complete this topic
--- OUTSIDE RECORDS SUMMARY | 2025-01-15 17:27 | XMS_ITS | Continuity of Care Document ---
Author Organization [facility] Address [address] [place] [address] [place] [address] Phone Care Team Providers Care Chimney Builder Helper Name Role Phone Yoni Pearson DO Unavailable Unavailable Advance Directives Directive Yes / No Effective Date File Name No Information Encounters Encounter Description Practice Location Reason(s) For Visit Diagnoses Date Provider Providers Copied on Encounter [facility], [address], [place], [place], [id number], [place] tel:[phone] [facility] No Information Michel Hong. [address] [facility], [place], [address], [place]. tel: [phone] Family History Family Member Type Diagnosis Age At Onset No Information Payers Payer name Insurance type Covered republican ID Authoriza tion(s) Medicaid [facility] [id number] Social History Type Description Quantity Date Captured [...]
--- OUTSIDE RECORDS SUMMARY | 2025-01-15 17:42 | XMS_ITS | Continuity of Care Document ---
Author Organization [facility] Address [address] [place] [address] [place] [address] Phone Care Team Providers Care Piccoloist Name Role Phone Yoni Pearson DO Unavailable Unavailable Advance Directives Directive Yes / No Effective Date File Name No Information Encounters Encounter Description Practice Location Reason(s) For Visit Diagnoses Date Provider Providers Copied on Encounter [facility], [address], [place], [place], [id number], [place] tel:[phone] [facility] [place] No Information Michel Hong. [address] [facility], [place], [address], [place]. tel: [phone] Family History Family Member Type Diagnosis Age At Onset No Information Payers Payer name Insurance type Covered democrat ID Authoriza tion(s) Medicaid [facility] [id number] Social History Type Description Quantity Date Captured [...]
== END 2025-01-15 16:20 | disposition left against medical advice (07) ==
PROVIDERS: PCP Internal Medicine
DX: M25.531 Pain in right wrist (principal)
CPT/HCPCS: 99199

== ENCOUNTER → 2025-01-22 14:49 | Outpatient (CLI) | payer MEDICARE, MEDICAID, SELFPAY ==
--- NOTE | ~2025-01-22 | XR_ITS ---
HISTORY: M25.539 - Pain in unspecified wrist COMPARISON: None TECHNIQUE: 3 views of the right wrist were performed. FINDINGS: No acute fracture is identified. The carpal arcs are intact. Moderate radiocarpal joint space narrowing with sclerosis of the distal radius is present. Significant degenerative disease is identified within the first carpometacarpal joint space, with ero sions and osteophyte formation. The remaining visualized joint spaces are narrowed, but otherwise preserved. Diffuse bony demineralization. No significant soft tissue swelling is noted. No radiopaque foreign body is identified. IMPRESSION: Significant degenerative disease, without acute fracture deformity Reviewed, dictated and finalized at location A.
== END ==
LOC: EXPCRAD 14:52
PROVIDERS: PCP Internal Medicine; Visit Provider Internal Medicine
DX: M19.031 Primary osteoarthritis, right wrist (principal)
CPT/HCPCS: 73110